=== PATIENT | female | born 1945 | race Caucasian/White ===

== ENCOUNTER 2022-02-04 16:45 | Outpatient (CLI) | payer MEDICARE, OTHER, SELFPAY | END 2022-02-04 16:46 | disposition home or self-care (01) | LOC: AMB 02-13 16:47 | PROVIDERS: Visit Provider Family Medicine | DX: M25.551 Pain in right hip (principal) | CPT/HCPCS: A0425; A0429 ==

== ENCOUNTER 2022-02-04 17:14 | Emergency (ER) | payer MEDICARE, OTHER, SELFPAY ==
[2022-02-04] VITALS (8 sets, daily range): BP systolic 102–137; BP diastolic 72–96; PULSE 113–128; RESP 14–18; TEMP 35.9–36.1; O2SAT 93–97; BMI 24.5
--- NOTE | 2022-02-04 17:37 | ED.GENADULT ---
HPI - General Adult General Time Seen by Provider: 17:37 <Mary Leigh MD - Last Filed: 02/04/22 19:38> Date Seen: 02/04/22 <Mary Leigh MD - Last Filed: 02/04/22 19:38> Chief complaint: Hip Injury/Pain <Mary Leigh MD - Last Filed: 02/04/22 19:38> Stated complaint: Hip pain <Mary Leigh MD - Last Filed: 02/04/22 19:38> Time Seen by Provider: 02/04/22 17:24 <Mary Leigh MD - Last Filed: 02/04/22 19:38> Source: patient, EMS and RN notes reviewed <Mary Leigh MD - Last Filed: 02/04/22 19:38> Mode of arrival: EMS <Mary Leigh MD - Last Filed: 02/04/22 19:38> Limitations: no limitations <Mary Leigh MD - Last Filed: 02/04/22 19:38> History of Present Illness HPI narrative: Patient is a 76-year-old female from the [facility] brought in by ambulance for inability to ambulate on her right hip. She was walking on on even ground Tuesday and since then she has had right hip pain. It goes into the groin. She does feel it go down to mid thigh or upper leg some. She feels it is more from the hip down the back. No numbness tingling. She can not even walk with her walker anymore because of the pain. She states it hurts when she moves her hip. She is on dialysis and is due for dialysis tomorrow. She dialyzes at [facility] in [place] on Tuesday and Tuesday. On admission nursing staff noted her vitals to show tachycardia. She is denying any sense of tachycardia. She states frequently when she goes to dialysis her heart rate will be elevated. She is not feeling short of breath at this time. Denies any chest pain. Patient is unsure where she would be transferred to in case she would need any surgery. She has been at [facility] before. She does have pain pills that she takes, is unsure if she is due for 1 but would like something for pain management. In her medication reconciliation she does get dilaudid 1 mg twice a day. Current medications: atorvastatin 10 mg at bedtime Keppra 5 mg at bedtime new Mucus Relief tablet 600 mg extended release at bedtime dilaudid 1 mg b.i.d. Levothyroxine 100 mcg daily Pilocarpine 2% solution, 1 drop each eye b.i.d. Acetaminophen 1000 mg b.i.d. Amiodarone 100 mg daily Plavix 75 mg daily Voltaren 1% gel topically b.i.d. Ferrous sulfate 325 mg daily Fosrenal 500 mg, 3 tablets 3 times a day Lisinopril 40 mg daily Metoprolol tartrate 100 mg 4 times a week, receives Tuesday, , Tuesday and Tuesday Metoprolol tartrate 50 mg 3 times a week on Tuesday and Tuesday morning prior to dialysis MiraLax 17 g daily Renal cap 1 tablet daily Senna 2 tablets b.i.d. Metoprolol tartrate 100 mg every evening at 6:00 p.m. P.r.n. medications acetaminophen, albuterol, bacitracin, Epogen, hydralazine, Dilaudid, loperamide, nystatin, pilocarpine, senna, cough syrup, Zanaflex Advanced directives: Patient's paperwork does show her to be DNR DNI <Mary Leigh MD - Last Filed: 02/04/22 19:38> Related Data Allergies/adverse reactions: Allergies Allergy/AdvReac Type Severity Reaction Status Date / Time amlodipine Allergy Verified 02/04/22 17:24 benzethonium chloride Allergy Verified 02/04/22 17:24 clindamycin Allergy Verified 02/04/22 17:24 iron Allergy Verified 02/04/22 17:24 latex Allergy Verified 02/04/22 17:24 Penicillins Allergy Verified 02/04/22 17:24 propylene glycol Allergy Verified 02/04/22 17:24 Sulfa (Sulfonamide Allergy Verified 02/04/22 17:24 Antibiotics) <Mary Leigh MD - Last Filed: 02/04/22 19:38> Review of Systems Status of ROS: Reports: 10 or more systems reviewed and unremarkable except as noted in History and below <Mary Leigh MD - Last Filed: 02/04/22 19:38> [facility] Social History: Social History Smoking Status: Never smoker Do you use any of these nicotine containing products: None Second hand tobacco smoke exposure: No How often do you have a drink containing alcohol: never How often do you have six or more drinks on one occasion: Never AUDIT-C Alcohol total score: 0 Non-prescribed substance use: denies use <Mary Leigh MD - Last Filed: 02/04/22 19:38> Exam Const: Vital Signs, click to edit/add: Vital Signs - 24 hr 02/04/22 17:24 02/04/22 17:30 02/04/22 18:30 Temperature 97 F L 97 F L Pulse Rate [Apical ] 128 H 127 H 123 H Respiratory Rate 18 16 Blood Pressure [Ri ght Upper Arm] 134/95 H 128/96 H 137/95 H Pulse Oximetry 97 94 94 Oxygen Delivery Me thod Room Air Room Air Room Air 02/04/22 19:30 Temperature 96.7 F L Pulse Rate [Apical ] 124 H Respiratory Rate 14 Blood Pressure [Ri ght Upper Arm] 116/84 Pulse Oximetry 97 Oxygen Delivery Me thod Room Air <Mary Leigh MD - Last Filed: 02/04/22 19:38> Vital Signs, click to edit/add: Vital Signs - 24 hr 02/04/22 17:24 02/04/22 17:30 02/04/22 18:30 Temperature 97 F L 97 F L Pulse Rate [Apical ] 128 H 127 H 123 H Respiratory Rate 18 16 Blood Pressure [Ri ght Upper Arm] 134/95 H 128/96 H 137/95 H Pulse Oximetry 97 94 94 Oxygen Delivery Me thod Room Air Room Air Room Air 02/04/22 19:30 Temperature 96.7 F L Pulse Rate [Apical ] 124 H Respiratory Rate 14 Blood Pressure [Ri ght Upper Arm] 116/84 Pulse Oximetry 97 Oxygen Delivery Me thod Room Air <Chaitanya Littlejohn MD - Last Filed: 02/04/22 20:44> Documenting provider has reviewed patient's vital signs: yes <Mary Leigh MD - Last Filed: 02/04/22 19:38> Common normals: no apparent distress, average body habitus, oriented x3, no limitations and alert <Mary Leigh MD - Last Filed: 02/04/22 19:38> General appearance: cooperative, comfortable and well kempt <Mary Leigh MD - Last Filed: 02/04/22 19:38> HENMT: Common normals: normocephalic, head/scalp atraumatic, hearing grossly normal bilaterally and external ears normal <Mary Leigh MD - Last Filed: 02/04/22 19:38> Head and scalp: normocephalic and atraumatic <Mary Leigh MD - Last Filed: 02/04/22 19:38> External ear: external ears normal <Mary Leigh MD - Last Filed: 02/04/22 19:38> Eye: Common normals: PERRL, EOMs intact bilaterally, conjunctivae normal and no scleral icterus <Mary Leigh MD - Last Filed: 02/04/22 19:38> Conjunctiva: conjunctiva(e) normal <Mary Leigh MD - Last Filed: 02/04/22 19:38> Pupil: PERRL <Mary Leigh MD - Last Filed: 02/04/22 19:38> Neck & C-Spine: Common normals: full ROM, no lymphadenopathy, supple, no meningeal signs and thyroid normal <Mary Leigh MD - Last Filed: 02/04/22 19:38> Thyroid: thyroid normal <Mary Leigh MD - Last Filed: 02/04/22 19:38> Resp: Common normals: normal respiratory effort (Had difficulty due to right hip pain sitting up, rolled side to side for me), no retractions, no use of accessory muscles and clear to auscultation bilaterally <Mary Leigh MD - Last Filed: 02/04/22 19:38> Effort & inspection: able to speak in complete sentences <Mary Leigh MD - Last Filed: 02/04/22 19:38> Auscultation: clear to auscultation bilaterally <Mary Leigh MD - Last Filed: 02/04/22 19:38> Cardio: Common normals: regular rate, regular rhythm, S1 normal heart sound, S2 normal heart sound, no gallops, no clicks and no murmurs <Mary Leigh MD - Last Filed: 02/04/22 19:38> Rate: regular rate <Mary Leigh MD - Last Filed: 02/04/22 19:38> Rhythm: regular rhythm <Mary Leigh MD - Last Filed: 02/04/22 19:38> Heart sounds: S1 normal and S2 normal <Mary Leigh MD - Last Filed: 02/04/22 19:38> GI: Common normals: Normal to inspection, nondistended, normoactive bowel sounds present, soft to palpation, non-tender, no hepatosplenomegaly and no masses <Mary Leigh MD - Last Filed: 02/04/22 19:38> Palpation: soft and no hepatosplenomegaly <Mary Leigh MD - Last Filed: 02/04/22 19:38> Extremity: Common normals: normal to inspection <Mary Leigh MD - Last Filed: 02/04/22 19:38> Right lower extremity: hip joint (Complains of pain when I internally or externally rotate the hip. ) Right hip: palpation (Greater trochanter nontender) and ROM <Mary Leigh MD - Last Filed: 02/04/22 19:38> Neuro: Common normals: oriented x3 <Mary Leigh MD - Last Filed: 02/04/22 19:38> Sensorium/orientation: alert <Mary Leigh MD - Last Filed: 02/04/22 19:38> Meningeal signs: no meningeal signs <Mary Leigh MD - Last Filed: 02/04/22 19:38> Psych: Appearance: well kempt <Mary Leigh MD - Last Filed: 02/04/22 19:38> Course Course Hospital Course: Will have patient on cardiac monitoring and pulse oximetry. Do not have any recent records on her to establish heart rate baseline. She is seemingly asymptomatic at this time. Will do appropriate labs, obtain imaging of her hip and pelvis. While she is having this imaging done I will get a chest x-ray to ensure no significant fluid overload. Clinically her lungs sound clear. <Mary Leigh MD - Last Filed: 02/04/22 19:38> Reevaluation(s) Reevaluation #1: Did look in her old records and did find an MRI of her lumbar spine done for low back pain in October of 2021. See below. Pulse documentation over the last year that I can see is is showing her pulse to be upper 50s, like 58, to low 60s. MR NUMBER: [id number] PT NAME:? SHASTA LARA : 1945 :? Lorena Deinse RN ACCOUNT NUMBER:? [id number] DATE: 11/04/21? [id number] MRI/LUMBAR SPINE W/O CONTRAST? For Patients:? As a result of the 21st Century Cures Act, medical imaging exams and procedure reports are released immediately into your electronic medical record.? You may view this report before your referring provider.? If you have questions, please contact your health care provider. INDICATION: Low back pain. COMPARISON: 10/24/2021. TECHNIQUE: Sagittal T1, T2, and STIR sequences. Axial T1 and T2 weighted sequences. FINDINGS: Stable trace degenerative anterolisthesis of L4 on L5 measuring approximately 4 mm. Otherwise, normal alignment. No fractures. No vertebral body loss of height. No ligamentous injury. No suspicious osseous lesions. Normal conus terminates at L1. Polycystic kidneys. T12-L1: No spinal canal neural foraminal narrowing. L1-2: Disc degeneration posterior disc bulge. No narrowing of spinal canal. No neural foraminal narrowing. L2-3: Disc degeneration and posterior disc bulge. Mild narrowing of spinal canal. No neural foraminal narrowing. Mild facet arthropathy. L3-4: Disc degeneration and posterior disc bulge. Combined facet arthropathy, there is moderate narrowing of spinal canal. Mild narrowing of the bilateral foramina. Mild facet arthropathy. L4-5: Grade 1 anterolisthesis. Disc degeneration and posterior disc bulge. Combined with ligament flavum and facet hypertrophy, there is severe spinal canal narrowing. There is an additional sequestered disc fragment along the right paracentral subarticular zone measuring approximately 10 mm in diameter with 10 mm of cephalad migration (best appreciated on series 7, image 26; series 2, image 7). Impingement of the traversing right L4 nerve root. Oblique orientation of the bilateral foramina with moderate severe right and [id number] left neural foraminal narrowing. Impingement of the exiting right L4 nerve root. Mild facet arthropathy. L5-S1: Disc degeneration. No narrowing of spinal canal. No impingement of the traversing S1 nerve roots. Mild narrowing of the bilateral foramina. Normal visualized SI joints. IMPRESSION: 1. Degenerative anterolisthesis of L4 on L5. Otherwise normal alignment. No fractures 2. Polycystic kidneys. 3. At L2-3, mild narrowing of spinal canal 4. At L3-4, moderate narrowing of spinal canal. Mild narrowing of the bilateral foramina 5. At L4-5, grade 1 anterolisthesis. Posterior disc bulge. Severe spinal canal narrowing. Additional sequestered disc fragment along the right paracentral and subarticular zones with cephalad migration. Impingement of the traversing right L4 nerve root. Moderate severe narrowing of the right neural foramina with impingement of the exiting portion of the right L4 6. At L5-S1, mild narrowing of the bilateral foramina Dictated by Herman Del Castillo MD @ 11/04/2021 1:32:13 PM (Electronically Signed) <Mary Leigh MD - Last Filed: 02/04/22 19:38> Vital Signs Vital signs: Initial Vital Signs Temperature 97 F L 02/04/22 17:24 Temperature Source Temporal Artery Scan 02/04/22 17:24 Pulse Rate 128 H 02/04/22 17:24 Pulse Rhythm 02/04/22 17:24 Respiratory Rate 18 02/04/22 17:24 Blood Pressure 134/95 H 02/04/22 17:24 Blood Pressure Mean 108 02/04/22 17:24 Blood Pressure Position Supine 02/04/22 17:24 Pulse Oximetry 97 02/04/22 17:24 Oxygen Delivery Method 02/04/22 17:24 Vital Signs Temperature 97 F L 02/04/22 17:24 Pulse Rate 128 H 02/04/22 17:24 Respiratory Rate 18 02/04/22 17:24 Blood Pressure 134/95 H 02/04/22 17:24 Pulse Oximetry 97 02/04/22 17:24 Oxygen Delivery Method 02/04/22 17:24 Temperature 96.7 F L 02/04/22 19:30 Pulse Rate 124 H 02/04/22 19:30 Respiratory Rate 14 02/04/22 19:30 Blood Pressure 116/84 02/04/22 19:30 Pulse Oximetry 97 02/04/22 19:30 Oxygen Delivery Method 02/04/22 19:30 <Mary Leigh MD - Last Filed: 02/04/22 19:38> Initial Vital Signs Temperature 97 F L 02/04/22 17:24 Temperature Source Temporal Artery Scan 02/04/22 17:24 Pulse Rate 128 H 02/04/22 17:24 Pulse Rhythm 02/04/22 17:24 Respiratory Rate 18 02/04/22 17:24 Blood Pressure 134/95 H 02/04/22 17:24 Blood Pressure Mean 108 02/04/22 17:24 Blood Pressure Position Supine 02/04/22 17:24 Pulse Oximetry 97 02/04/22 17:24 Oxygen Delivery Method 02/04/22 17:24 Vital Signs Temperature 97 F L 02/04/22 17:24 Pulse Rate 128 H 02/04/22 17:24 Respiratory Rate 18 02/04/22 17:24 Blood Pressure 134/95 H 02/04/22 17:24 Pulse Oximetry 97 02/04/22 17:24 Oxygen Delivery Method 02/04/22 17:24 Temperature 96.7 F L 02/04/22 19:30 Pulse Rate 124 H 02/04/22 19:30 Respiratory Rate 14 02/04/22 19:30 Blood Pressure 116/84 02/04/22 19:30 Pulse Oximetry 97 02/04/22 19:30 Oxygen Delivery Method 02/04/22 19:30 <Chaitanya Littlejohn MD - Last Filed: 02/04/22 20:44> Medical Decision Making MDM Narrative Medical decision making narrative: Care for this patient was transferred to id at the end of Dr. Gonsalez's shift. This patient is unable to get up and ambulate because of severe hip and pelvic pain when doing so. Additionally she has increased heart rate in the 120s. She is a dialysis patient and is due for dialysis tomorrow. Attempt was made to transfer her by calling all typical transfer facilities that we utilize. None of these were available to accommodate her. I did then speak with the hospitalist restrictive preparation operator, Dr. Napoles who agrees to bring her in overnight and will likely half to arrange for a trip to outpatient dialysis tomorrow. The patient may benefit also from an MRI for further evaluation of the cause of her pain. As for her heart rate, she did receive an oral dose of metoprolol 100 mg. <Chaitanya Littlejohn MD - Last Filed: 02/04/22 20:44> Lab Data Labs: Lab Results 02/04/22 02/04/22 02/04/22 Range/Units 17:58 18:25 18:25 WBC 5.61 (4.50-11.00) K/uL RBC 3.60 L (4.00-5.20) m/uL Hgb 12.3 (12.0-16.0) gm/dL Hct 36.3 (33.0-51.0) % MCV 101 H (80-100) fL MCH 34 (26-34) pg MCHC 34 (32-36) gm/dL RDW Coeff of Fabienne 12.7 (11.5-15.5) % Plt Count 254 (140-440) K/uL Neut % (Auto) 67.9 (42.0-72.0) % Lymph % (Auto) 13.4 L (20-44) % [place] % (Auto) 15.5 H (0.0-11.0) % Eos % (Auto) 2.3 (0.0-7.0) % Baso % (Auto) 0.7 (0.0-3.0) % Neut # (Auto) 3.81 (1.7-7.0) K/uL Lymph # (Auto) 0.80 L (0.90-2.90) K/uL [place] # (Auto) 0.90 (0.00-0.90) K/UL Eos # (Auto) 0.13 (0.00-0.50) K/uL Baso # (Auto) 0.04 (0.00-0.30) K/uL Abs Immat Gran (auto) 0.01 (0.00-0.30) K/uL Sodium 131 L (135-149) mmol/L Potassium 4.9 (3.6-5.1) mmol/L Chloride 89 L (96-114) mmol/L Carbon Dioxide 27 (20-32) mmol/L BUN 33 H (7-30) mg/dL Creatinine 6.0 H (0.5-1.5) mg/dL Estimated Creat Clear 6.41 Estimated GFR 7 ml/min Glucose 105 (60-115) mg/dL Calcium 10.2 (8.4-10.6) mg/dL Total Bilirubin 0.7 (0.1-1.5) mg/dL AST 25 (12-35) U/L ALT 16 (4-35) U/L Alkaline Phosphatase 123 (40-150) U/L Troponin I < 0.01 L (0.01-0.04) ng/mL NT-Pro-B Natriuret Pep 43753 H (0-450) PG/mL Total Protein 7.2 (6.0-8.3) g/dL Albumin 4.7 (3.3-5.0) g/dL TSH (0.270-4.200) uIU/mL SARS-CoV-2 (PCR) Negative SARS-CoV-2 (Negative) 02/04/22 Range/Units 18:25 WBC (4.50-11.00) K/uL RBC (4.00-5.20) m/uL Hgb (12.0-16.0) gm/dL Hct (33.0-51.0) % MCV (80-100) fL MCH (26-34) pg MCHC (32-36) gm/dL RDW Coeff of Fabienne (11.5-15.5) % Plt Count (140-440) K/uL Neut % (Auto) (42.0-72.0) % Lymph % (Auto) (20-44) % [place] % (Auto) (0.0-11.0) % Eos % (Auto) (0.0-7.0) % Baso % (Auto) (0.0-3.0) % Neut # (Auto) (1.7-7.0) K/uL Lymph # (Auto) (0.90-2.90) K/uL [place] # (Auto) (0.00-0.90) K/UL Eos # (Auto) (0.00-0.50) K/uL Baso # (Auto) (0.00-0.30) K/uL Abs Immat Gran (auto) (0.00-0.30) K/uL Sodium (135-149) mmol/L Potassium (3.6-5.1) mmol/L Chloride (96-114) mmol/L Carbon Dioxide (20-32) mmol/L BUN (7-30) mg/dL Creatinine (0.5-1.5) mg/dL Estimated Creat Clear Estimated GFR ml/min Glucose (60-115) mg/dL Calcium (8.4-10.6) mg/dL Total Bilirubin (0.1-1.5) mg/dL AST (12-35) U/L ALT (4-35) U/L Alkaline Phosphatase (40-150) U/L Troponin I (0.01-0.04) ng/mL NT-Pro-B Natriuret Pep (0-450) PG/mL Total Protein (6.0-8.3) g/dL Albumin (3.3-5.0) g/dL TSH 0.340 (0.270-4.200) uIU/mL SARS-CoV-2 (PCR) (Negative) <Mary Leigh MD - Last Filed: 02/04/22 19:38> Lab Results 02/04/22 02/04/22 02/04/22 Range/Units 17:58 18:25 18:25 WBC 5.61 (4.50-11.00) K/uL RBC 3.60 L (4.00-5.20) m/uL Hgb 12.3 (12.0-16.0) gm/dL Hct 36.3 (33.0-51.0) % MCV 101 H (80-100) fL MCH 34 (26-34) pg MCHC 34 (32-36) gm/dL RDW Coeff of Fabienne 12.7 (11.5-15.5) % Plt Count 254 (140-440) K/uL Neut % (Auto) 67.9 (42.0-72.0) % Lymph % (Auto) 13.4 L (20-44) % [place] % (Auto) 15.5 H (0.0-11.0) % Eos % (Auto) 2.3 (0.0-7.0) % Baso % (Auto) 0.7 (0.0-3.0) % Neut # (Auto) 3.81 (1.7-7.0) K/uL Lymph # (Auto) 0.80 L (0.90-2.90) K/uL [place] # (Auto) 0.90 (0.00-0.90) K/UL Eos # (Auto) 0.13 (0.00-0.50) K/uL Baso # (Auto) 0.04 (0.00-0.30) K/uL Abs Immat Gran (auto) 0.01 (0.00-0.30) K/uL Sodium 131 L (135-149) mmol/L Potassium 4.9 (3.6-5.1) mmol/L Chloride 89 L (96-114) mmol/L Carbon Dioxide 27 (20-32) mmol/L BUN 33 H (7-30) mg/dL Creatinine 6.0 H (0.5-1.5) mg/dL Estimated Creat Clear 6.41 Estimated GFR 7 ml/min Glucose 105 (60-115) mg/dL Calcium 10.2 (8.4-10.6) mg/dL Total Bilirubin 0.7 (0.1-1.5) mg/dL AST 25 (12-35) U/L ALT 16 (4-35) U/L Alkaline Phosphatase 123 (40-150) U/L Troponin I < 0.01 L (0.01-0.04) ng/mL NT-Pro-B Natriuret Pep 00241 H (0-450) PG/mL Total Protein 7.2 (6.0-8.3) g/dL Albumin 4.7 (3.3-5.0) g/dL TSH (0.270-4.200) uIU/mL SARS-CoV-2 (PCR) Negative SARS-CoV-2 (Negative) 02/04/22 Range/Units 18:25 WBC (4.50-11.00) K/uL RBC (4.00-5.20) m/uL Hgb (12.0-16.0) gm/dL Hct (33.0-51.0) % MCV (80-100) fL MCH (26-34) pg MCHC (32-36) gm/dL RDW Coeff of Fabienne (11.5-15.5) % Plt Count (140-440) K/uL Neut % (Auto) (42.0-72.0) % Lymph % (Auto) (20-44) % [place] % (Auto) (0.0-11.0) % Eos % (Auto) (0.0-7.0) % Baso % (Auto) (0.0-3.0) % Neut # (Auto) (1.7-7.0) K/uL Lymph # (Auto) (0.90-2.90) K/uL [place] # (Auto) (0.00-0.90) K/UL Eos # (Auto) (0.00-0.50) K/uL Baso # (Auto) (0.00-0.30) K/uL Abs Immat Gran (auto) (0.00-0.30) K/uL Sodium (135-149) mmol/L Potassium (3.6-5.1) mmol/L Chloride (96-114) mmol/L Carbon Dioxide (20-32) mmol/L BUN (7-30) mg/dL Creatinine (0.5-1.5) mg/dL Estimated Creat Clear Estimated GFR ml/min Glucose (60-115) mg/dL Calcium (8.4-10.6) mg/dL Total Bilirubin (0.1-1.5) mg/dL AST (12-35) U/L ALT (4-35) U/L Alkaline Phosphatase (40-150) U/L Troponin I (0.01-0.04) ng/mL NT-Pro-B Natriuret Pep (0-450) PG/mL Total Protein (6.0-8.3) g/dL Albumin (3.3-5.0) g/dL TSH 0.340 (0.270-4.200) uIU/mL SARS-CoV-2 (PCR) (Negative) <Chaitanya Littlejohn MD - Last Filed: 02/04/22 20:44> Imaging Data X-ray left hip/pelvis: Attestation: I have reviewed the pertinent imaging results. <Mary Leigh MD - Last Filed: 02/04/22 19:38> My impression: On my preliminary <Mary Leigh MD - Last Filed: 02/04/22 19:38> Radiologist's impression: Patient: SHASTA LARA Facility:?[facility] Patient ID:?[id number] Site Patient ID:?[id number]. Site :?1945 Study:?XRay Hip Right 2 VIEW WITH PELVIS-02/04/2022 6:13:09 PM Ordering Physician:Thuy Hernandez Final Report: Indication: Hip pain. Technique: Pelvis and right hip 3 views. Comparison: 10/09/2021. Findings: Bones: Alignment is normal. No fractures or bone lesions. Joint spaces: Stable moderate right hip joint arthritis. Unremarkable left hip joint. No other finding to explain pain. Soft tissues: Unremarkable. Dictated by Ant Gayle MD @ 02/04/2022 6:49:33 PM (Electronic Signature) <Mary Leigh MD - Last Filed: 02/04/22 19:38> Chest x-ray: Attestation: I have reviewed the pertinent imaging results. <Mary Leigh MD - Last Filed: 02/04/22 19:38> My impression: On my preliminary read, I do see some pulmonary vascular congestion, some fluid on fissure on the right side. Does look to be cardiomegaly. Await Radiology over-read. <Mary Leigh MD - Last Filed: 02/04/22 19:38> Radiologist's impression: Patient: SHASTA LARA Facility:?[facility] Patient ID:?[id number] Site Patient ID:?[id number]. Site :?1945 Study:?XRay Chest 1 VIEW-02/04/2022 6:13:54 PM Ordering Physician:Thuy Hernandez Final Report: INDICATION: Tachycardia, dialysis patient.. TECHNIQUE: Chest 1 views. COMPARISON: None. FINDINGS/IMPRESSION: Cardiovascular and mediastinum: Borderline cardiomegaly. Lungs and pleural spaces: Subtle bilateral interstitial opacities may reflect pulmonary edema. No sign of pleural effusion. No pneumothorax. Bones and soft tissues: No significant findings. A vascular stent in the left clavicular region. Dictated by Nelson Boss MD @ 02/04/2022 6:49:27 PM (Electronic Signature) <Mary Leigh MD - Last Filed: 02/04/22 19:38> ECG Data Attestation: I personally reviewed and interpreted this ECG as follows: (Tachycardia at 126 beats per minute, P waves difficult to see but I do think they are perhaps there.) <Mary Leigh MD - Last Filed: 02/04/22 19:38> Prior ECG tracings: not available for review <Mary Leigh MD - Last Filed: 02/04/22 19:38> Critical Care Time Critical Care Time Critical Care Time: No <Mary Leigh MD - Last Filed: 02/04/22 19:38> Discharge Plan Discharge Clinical Impression: Acute hip pain, Atrial tachycardia, End stage renal disease on dialysis <Mary Leigh MD - Last Filed: 02/04/22 19:38> Patient Disposition: Admitted As Inpatient <Mary Leigh MD - Last Filed: 02/04/22 19:38> Condition: Unchanged <Mary Leigh MD - Last Filed: 02/04/22 19:38>
--- NOTE | 2022-02-04 17:44 | CRLHL7_ITS ---
For Patients: As a result of the Cures Act, medical imaging exams and procedure reports are released immediately into your electronic medical record. You may view this report before your referring provider. If you have questions, please contact your health care provider. Indication: Hip pain. Technique: Pelvis and right hip 3 views. Comparison: 10/09/2021. Findings: Bones: Alignment is normal. No fractures or bone lesions. Joint spaces: Stable moderate right hip joint arthritis. Unremarkable left hip joint. No other finding to explain pain. Soft tissues: Unremarkable. Dictated by Ant Gayle MD @ 02/04/2022 6:49:33 PM (Electronically Signed)
--- NOTE | 2022-02-04 17:45 | CRLHL7_ITS ---
For Patients: As a result of the Cures Act, medical imaging exams and procedure reports are released immediately into your electronic medical record. You may view this report before your referring provider. If you have questions, please contact your health care provider. INDICATION: Tachycardia, dialysis patient.. TECHNIQUE: Chest 1 views. COMPARISON: None. FINDINGS/IMPRESSION: Cardiovascular and mediastinum: Borderline cardiomegaly. Lungs and pleural spaces: Subtle bilateral interstitial opacities may reflect pulmonary edema. No sign of pleural effusion. No pneumothorax. Bones and soft tissues: No significant findings. A vascular stent in the left clavicular region. Dictated by Nelson Boss MD @ 02/04/2022 6:49:27 PM (Electronically Signed)
[2022-02-04] MEDS: HYDROmorphone 2 MG TABLET 1 MG PO ×2 (18:15→19:31)
--- NOTE | 2022-02-04 18:54 | CRLHL7_ITS ---
For Patients: As a result of the Century Cures Act, medical imaging exams and procedure reports are released immediately into your electronic medical record. You may view this report before your referring provider. If you have questions, please contact your health care provider. INDICATION: Hip pain. Unable to walk. TECHNIQUE: CT pelvis without contrast. COMPARISON: None. FINDINGS: Bones: Alignment is normal. No sign of acute fracture. No suspicious bony lesions. Joints: Moderate right hip joint osteoarthritis with subchondral cyst formation in the acetabulum. Unremarkable left hip joint. Soft tissues: A tract of fluid is present in the right inguinal canal. IMPRESSION: No fracture or other acute osseous abnormality. Moderate right hip joint osteoarthritis. Fluid is present in the right inguinal canal. No other specific finding to explain pain. Please note that all CT scans at this facility use dose modulation, iterative reconstruction, and/or weight-based dosing when appropriate to reduce radiation dose to as low as reasonably achievable. Dictated by Ant Gayle MD @ 02/04/2022 7:50:19 PM (Electronically Signed)
[2022-02-04 18:57] LABS: Basophils Absolute Auto 0.04 K/uL (0.00-0.30); Basophils Percent Auto 0.7 % (0.0-3.0); Eosinophils Absolute Auto 0.13 K/uL (0.00-0.50); Eosinophils Percent Auto 2.3 % (0.0-7.0); Hematocrit 36.3 % (33.0-51.0); Hemoglobin* 12.3 gm/dL (12.0-16.0); Immature Granulocytes Abs Auto 0.01 K/uL (0.00-0.30); Lymphocytes Percent Auto 13.4 % (20-44); Mean Corpuscular HGB Conc 34 gm/dL (32-36); Mean Corpuscular Hemoglobin 34 pg (26-34); Mean Corpuscular Volume 101 fL (80-100); Monocytes Percent Auto 15.5 % (0.0-11.0); Neutrophils Absolute Auto 3.81 K/uL (1.7-7.0); Neutrophils Percent Auto 67.9 % (42.0-72.0); Platelet Count* 254 K/uL (140-440); RDW Coefficient of Variation % 12.7 % (11.5-15.5); White Blood Count* 5.61 K/uL (4.50-11.00)
[2022-02-04 18:59] LABS: Slide Review Reflex No
[2022-02-04 19:05] LABS: Albumin* 4.7 g/dL (3.3-5.0); Chloride* 89 mmol/L (96-114)
[2022-02-04 19:06] LABS: Potassium* 4.9 mmol/L (3.6-5.1); Sodium* 131 mmol/L (135-149)
[2022-02-04 19:08] LABS: Aspartate Amino Transferase* 25 U/L (12-35); Bilirubin Total* 0.7 mg/dL (0.1-1.5); Carbon Dioxide* 27 mmol/L (20-32); Est. Creatinine Clearance* 6.41; Estimated Glomerular Filt Rate 7 ml/min; Total Protein* 7.2 g/dL (6.0-8.3)
[2022-02-04 19:09] LABS: Alanine Aminotransferase* 16 U/L (4-35); Alkaline Phosphatase* 123 U/L (40-150); Blood Urea Nitrogen* 33 mg/dL (7-30); Calcium* 10.2 mg/dL (8.4-10.6); Glucose* 105 mg/dL (60-115)
[2022-02-04 19:18] LABS: NT Pro B Type NatriureticPept* 23000 PG/mL (0-450)
[2022-02-04 19:24] LABS: Troponin I* < 0.01 ng/mL (0.01-0.04)
--- NOTE | 2022-02-04 19:42 | ED.NURSE ---
Dr. Gonsalez in with patient. Awaiting Ct results. Patient remains tachycardic, reports she did not receive evening metoprolol tonight. Also reporting nausea after dilaudid. Plan for metoprolol and zofran order. Per patient, she lives in assisted living at [facility], would not have assistance for mobility if she were to need to be in wheelchair until specialty consult.
[2022-02-04 19:43] LABS: SARS PCR* Negative SARS-CoV-2 (Negative)
[2022-02-04] MEDS: ONDANSETRON 2 MG/ML inj 4 MG IVP (19:52)
[2022-02-04] MEDS: METOPROLOL TARTRATE 100 MG TABLET PO (19:53)
--- NOTE | 2022-02-04 21:07 | ED.EXTPRO ---
HPI - Extremity Problem General Chief complaint: Hip Injury/Pain Stated complaint: Hip pain Time Seen by Provider: 02/04/22 17:24 Source: patient and RN notes reviewed Mode of arrival: EMS Limitations: no limitations History of Present Illness HPI Narrative: I assumed care for patient at 9:00 p.m., following Dr. Souza shift. Dr. Peck had been told that the patient was to be accepted onto the med surge unit. Following his departure, the med surge team to clear that they could no longer take the patient as they had another patient transferring into the CCU, leaving without appropriate staff. Because of this, patient will remain in the emergency department until an appropriate dialysis bed opens up or her condition improves. I have ordered her home medications for evening. I specifically ordered 100 mg of short-acting metoprolol every evening, 1 mg of Dilaudid b.i.d., Keppra 500 mg at bedtime. I will be turning over care to Dr. Gil at midnight. Related Data Allergies Allergy/AdvReac Type Severity Reaction Status Date / Time amlodipine Allergy Verified 02/04/22 17:24 benzethonium chloride Allergy Verified 02/04/22 17:24 clindamycin Allergy Verified 02/04/22 17:24 iron Allergy Verified 02/04/22 17:24 latex Allergy Verified 02/04/22 17:24 Penicillins Allergy Verified 02/04/22 17:24 propylene glycol Allergy Verified 02/04/22 17:24 Sulfa (Sulfonamide Allergy Verified 02/04/22 17:24 Antibiotics) PFSH PFS Social History Smoking Status: Never smoker Do you use any of these nicotine containing products: None Second hand tobacco smoke exposure: No How often do you have a drink containing alcohol: never How often do you have six or more drinks on one occasion: Never AUDIT-C Alcohol total score: 0 Non-prescribed substance use: denies use Exam Const: Vital Signs, click to edit/add: Vital Signs - 24 hr 02/04/22 17:24 02/04/22 17:30 02/04/22 18:30 Temperature 97 F L 97 F L Pulse Rate [Apical ] 128 H 127 H 123 H Respiratory Rate 18 16 Blood Pressure [Ri ght Upper Arm] 134/95 H 128/96 H 137/95 H Pulse Oximetry 97 94 94 Oxygen Delivery Me thod Room Air Room Air Room Air 02/04/22 19:30 Temperature 96.7 F L Pulse Rate [Apical ] 124 H Respiratory Rate 14 Blood Pressure [Ri ght Upper Arm] 116/84 Pulse Oximetry 97 Oxygen Delivery Me thod Room Air Course Course Hospital Course: Will have patient on cardiac monitoring and pulse oximetry. Do not have any recent records on her to establish heart rate baseline. She is seemingly asymptomatic at this time. Will do appropriate labs, obtain imaging of her hip and pelvis. While she is having this imaging done I will get a chest x-ray to ensure no significant fluid overload. Clinically her lungs sound clear. Vital Signs Vital signs: Initial Vital Signs Temperature 97 F L 02/04/22 17:24 Temperature Source Temporal Artery Scan 02/04/22 17:24 Pulse Rate 128 H 02/04/22 17:24 Pulse Rhythm 02/04/22 17:24 Respiratory Rate 18 02/04/22 17:24 Blood Pressure 134/95 H 02/04/22 17:24 Blood Pressure Mean 108 02/04/22 17:24 Blood Pressure Position Supine 02/04/22 17:24 Pulse Oximetry 97 02/04/22 17:24 Oxygen Delivery Method 02/04/22 17:24 Vital Signs Temperature 97 F L 02/04/22 17:24 Pulse Rate 128 H 02/04/22 17:24 Respiratory Rate 18 02/04/22 17:24 Blood Pressure 134/95 H 02/04/22 17:24 Pulse Oximetry 97 02/04/22 17:24 Oxygen Delivery Method 02/04/22 17:24 Temperature 96.7 F L 02/04/22 19:30 Pulse Rate 124 H 02/04/22 19:30 Respiratory Rate 14 02/04/22 19:30 Blood Pressure 116/84 02/04/22 19:30 Pulse Oximetry 97 02/04/22 19:30 Oxygen Delivery Method 02/04/22 19:30 MDM - Extremity (Nontraumatic) Lab Data Labs: Lab Results 02/04/22 02/04/22 02/04/22 Range/Units 17:58 18:25 18:25 WBC 5.61 (4.50-11.00) K/uL RBC 3.60 L (4.00-5.20) m/uL Hgb 12.3 (12.0-16.0) gm/dL Hct 36.3 (33.0-51.0) % MCV 101 H (80-100) fL MCH 34 (26-34) pg MCHC 34 (32-36) gm/dL RDW Coeff of Fabienne 12.7 (11.5-15.5) % Plt Count 254 (140-440) K/uL Neut % (Auto) 67.9 (42.0-72.0) % Lymph % (Auto) 13.4 L (20-44) % [place] % (Auto) 15.5 H (0.0-11.0) % Eos % (Auto) 2.3 (0.0-7.0) % Baso % (Auto) 0.7 (0.0-3.0) % Neut # (Auto) 3.81 (1.7-7.0) K/uL Lymph # (Auto) 0.80 L (0.90-2.90) K/uL [place] # (Auto) 0.90 (0.00-0.90) K/UL Eos # (Auto) 0.13 (0.00-0.50) K/uL Baso # (Auto) 0.04 (0.00-0.30) K/uL Abs Immat Gran (auto) 0.01 (0.00-0.30) K/uL Sodium 131 L (135-149) mmol/L Potassium 4.9 (3.6-5.1) mmol/L Chloride 89 L (96-114) mmol/L Carbon Dioxide 27 (20-32) mmol/L BUN 33 H (7-30) mg/dL Creatinine 6.0 H (0.5-1.5) mg/dL Estimated Creat Clear 6.41 Estimated GFR 7 ml/min Glucose 105 (60-115) mg/dL Calcium 10.2 (8.4-10.6) mg/dL Total Bilirubin 0.7 (0.1-1.5) mg/dL AST 25 (12-35) U/L ALT 16 (4-35) U/L Alkaline Phosphatase 123 (40-150) U/L Troponin I < 0.01 L (0.01-0.04) ng/mL NT-Pro-B Natriuret Pep 20348 H (0-450) PG/mL Total Protein 7.2 (6.0-8.3) g/dL Albumin 4.7 (3.3-5.0) g/dL TSH (0.270-4.200) uIU/mL SARS-CoV-2 (PCR) Negative SARS-CoV-2 (Negative) 02/04/22 Range/Units 18:25 WBC (4.50-11.00) K/uL RBC (4.00-5.20) m/uL Hgb (12.0-16.0) gm/dL Hct (33.0-51.0) % MCV (80-100) fL MCH (26-34) pg MCHC (32-36) gm/dL RDW Coeff of Fabienne (11.5-15.5) % Plt Count (140-440) K/uL Neut % (Auto) (42.0-72.0) % Lymph % (Auto) (20-44) % [place] % (Auto) (0.0-11.0) % Eos % (Auto) (0.0-7.0) % Baso % (Auto) (0.0-3.0) % Neut # (Auto) (1.7-7.0) K/uL Lymph # (Auto) (0.90-2.90) K/uL [place] # (Auto) (0.00-0.90) K/UL Eos # (Auto) (0.00-0.50) K/uL Baso # (Auto) (0.00-0.30) K/uL Abs Immat Gran (auto) (0.00-0.30) K/uL Sodium (135-149) mmol/L Potassium (3.6-5.1) mmol/L Chloride (96-114) mmol/L Carbon Dioxide (20-32) mmol/L BUN (7-30) mg/dL Creatinine (0.5-1.5) mg/dL Estimated Creat Clear Estimated GFR ml/min Glucose (60-115) mg/dL Calcium (8.4-10.6) mg/dL Total Bilirubin (0.1-1.5) mg/dL AST (12-35) U/L ALT (4-35) U/L Alkaline Phosphatase (40-150) U/L Troponin I (0.01-0.04) ng/mL NT-Pro-B Natriuret Pep (0-450) PG/mL Total Protein (6.0-8.3) g/dL Albumin (3.3-5.0) g/dL TSH 0.340 (0.270-4.200) uIU/mL SARS-CoV-2 (PCR) (Negative) Discharge Plan Discharge Clinical Impression: Acute hip pain, Atrial tachycardia, End stage renal disease on dialysis Patient Disposition: Admitted As Inpatient Condition: Unchanged
[2022-02-04] MEDS: levETIRAcetam 500 MG TABLET PO (21:50)
--- NOTE | 2022-02-04 22:12 | ED.NURSE ---
no beds available for transfer, pt moved to hospital bed, does have pain to R leg, cms intact, second call to [facility] for meds admin today, they will call back
--- NOTE | 2022-02-04 22:45 | ED.NURSE ---
call back from [facility]avo [phone]. pt did have 100mg metoprolol this am, and has already had 100mg metoprolol in ER, will hold ordered dose, dr borjas updated. pt usually has 1mg dilaudid in the evening at [facility], has also already had in ER. Pt states pain is tolerable at rest, does grimmage with movement. Dr. Borjas updated that Pt states R foot feels heavy, cms remains intact.
--- NOTE | 2022-02-04 23:22 | ED.GENADULT ---
HPI - General Adult General Date Seen: 02/04/22 Chief complaint: Hip Injury/Pain Stated complaint: Hip pain Time Seen by Provider: 02/04/22 17:24 Source: patient, RN notes reviewed and old records reviewed Mode of arrival: EMS Limitations: no limitations History of Present Illness HPI narrative: Patient accepted in sign-out from Dr. Bennett. Please see prior notes for complete history and physical as well as ED course so far. Briefly, this is a dialysis dependent patient with history of SVT who presents today atraumatic hip pain. Labs demonstrate normal white blood cell count and normal hemoglobin, CT scan of the pelvis with fluid present in the right inguinal canal but no other acute findings. Patient is due for dialysis tomorrow. However, also persistently tachycardic in the emergency department with no definite explanation. Patient says that she has had tachycardia before but review of chart shows that heart rate is normally in the 50s to 60s when she has been seen previously. Related Data Allergies Allergy/AdvReac Type Severity Reaction Status Date / Time acetic acid Allergy Severe Hives Verified 02/09/22 11:32 benzalkonium chloride Allergy Severe Hives Verified 02/09/22 11:32 hydrocortisone Allergy Severe Hives Verified 02/09/22 11:32 amlodipine Allergy Verified 02/04/22 17:24 benzethonium chloride Allergy Verified 02/04/22 17:24 clindamycin Allergy Verified 02/04/22 17:24 iron Allergy Verified 02/04/22 17:24 latex Allergy Verified 02/04/22 17:24 Penicillins Allergy Verified 02/04/22 17:24 propylene glycol Allergy Verified 02/04/22 17:24 Sulfa (Sulfonamide Allergy Verified 02/04/22 17:24 Antibiotics) Penicillin Allergy Severe Throat Uncoded 02/09/22 11:32 closure, hives Sulfa Antibiotics Allergy Unknown Throat Uncoded 02/09/22 11:32 closure, hives IV iron AdvReac Severe Hospital Uncoded 02/09/22 11:32 admission due to trouble breathing [facility] Medical History (Updated 02/09/22 @ 11:33 by Dee Montero) History of fracture of pelvis Mumps Surgical History (Updated 02/09/22 @ 11:33 by Dee Montero) Status post total abdominal hysterectomy and bilateral salpingo-oophorectomy Social History Smoking Status: Never smoker Do you use any of these nicotine containing products: None Second hand tobacco smoke exposure: No How often do you have a drink containing alcohol: never How often do you have six or more drinks on one occasion: Never AUDIT-C Alcohol total score: 0 Non-prescribed substance use: denies use Exam Const: Vital Signs, click to edit/add: Vital Signs - 24 hr 02/04/22 17:24 02/04/22 17:30 02/04/22 18:30 Temperature 97 F L 97 F L Pulse Rate [Apical ] 128 H 127 H 123 H Respiratory Rate 18 16 Blood Pressure [Ri ght Upper Arm] 134/95 H 128/96 H 137/95 H Pulse Oximetry 97 94 94 Oxygen Delivery Me thod Room Air Room Air Room Air 02/04/22 19:30 02/04/22 21:30 02/04/22 22:00 Temperature 96.7 F L Pulse Rate [Apical ] 124 H 116 H 115 H Respiratory Rate 14 14 14 Blood Pressure [Ri ght Upper Arm] 116/84 103/73 125/88 Pulse Oximetry 97 93 Oxygen Delivery Me thod Room Air Room Air Room Air 02/04/22 22:30 02/04/22 23:00 Temperature 96.7 F L Pulse Rate [Apical ] 114 H 113 H Respiratory Rate 14 14 Blood Pressure [Ri ght Upper Arm] 103/73 102/72 Pulse Oximetry 94 93 Oxygen Delivery Me thod Room Air Room Air Course Course Hospital Course: Will have patient on cardiac monitoring and pulse oximetry. Do not have any recent records on her to establish heart rate baseline. She is seemingly asymptomatic at this time. Will do appropriate labs, obtain imaging of her hip and pelvis. While she is having this imaging done I will get a chest x-ray to ensure no significant fluid overload. Clinically her lungs sound clear. Reevaluation(s) Reevaluation #1: Sign-out accepted from Dr. Bennett. Reviewed workup so far including labs and CT. Patient recheck. She really has no tenderness of the hip on exam but does have pain with active motion, mild pain with passive movement as well. No redness or exquisite tenderness of hip to suggest septic arthritis or crystal arthropathy. Labs including blood cultures and lactate are ordered. CRP of minimal use in this chronically ill patient. Will recheck CBC as well to see if there have been any changes during patient's emergency psych course. Due to ongoing tachycardia of unknown etiology, CT scan chest, abdomen, pelvis with contrast will be done. Patient will be dialyzed in the morning Time: 23:20 Reevaluation #2: I personally reviewed CT images, no definite acute findings in the chest, abdomen, or pelvis. On return back from Radiology, patient has converted out of her rapid heart rate to 50s to 60s. Decadron ordered for possible exacerbation of known osteoarthritis. Time: 00:25 Vital Signs Vital signs: Initial Vital Signs Temperature 97 F L 02/04/22 17:24 Temperature Source Temporal Artery Scan 02/04/22 17:24 Pulse Rate 128 H 02/04/22 17:24 Pulse Rhythm 02/04/22 17:24 Respiratory Rate 18 02/04/22 17:24 Blood Pressure 134/95 H 02/04/22 17:24 Blood Pressure Mean 108 02/04/22 17:24 Blood Pressure Position Supine 02/04/22 17:24 Pulse Oximetry 97 02/04/22 17:24 Oxygen Delivery Method 02/04/22 17:24 Vital Signs Temperature 97 F L 02/04/22 17:24 Pulse Rate 128 H 02/04/22 17:24 Respiratory Rate 18 02/04/22 17:24 Blood Pressure 134/95 H 02/04/22 17:24 Pulse Oximetry 97 02/04/22 17:24 Oxygen Delivery Method 02/04/22 17:24 Temperature 96.7 F L 02/04/22 22:30 Pulse Rate 62 02/05/22 08:38 Respiratory Rate 18 02/05/22 08:38 Blood Pressure 138/75 02/05/22 08:38 Pulse Oximetry 96 02/05/22 08:38 Oxygen Delivery Method 02/05/22 08:38 Medical Decision Making Lab Data Labs: Lab Results 02/04/22 02/04/22 02/04/22 Range/Units 17:58 18:25 18:25 WBC 5.61 (4.50-11.00) K/uL RBC 3.60 L (4.00-5.20) m/uL Hgb 12.3 (12.0-16.0) gm/dL Hct 36.3 (33.0-51.0) % MCV 101 H (80-100) fL MCH 34 (26-34) pg MCHC 34 (32-36) gm/dL RDW Coeff of Fabienne 12.7 (11.5-15.5) % Plt Count 254 (140-440) K/uL Neut % (Auto) 67.9 (42.0-72.0) % Lymph % (Auto) 13.4 L (20-44) % [place] % (Auto) 15.5 H (0.0-11.0) % Eos % (Auto) 2.3 (0.0-7.0) % Baso % (Auto) 0.7 (0.0-3.0) % Neut # (Auto) 3.81 (1.7-7.0) K/uL Lymph # (Auto) 0.80 L (0.90-2.90) K/uL [place] # (Auto) 0.90 (0.00-0.90) K/UL Eos # (Auto) 0.13 (0.00-0.50) K/uL Baso # (Auto) 0.04 (0.00-0.30) K/uL Abs Immat Gran (auto) 0.01 (0.00-0.30) K/uL Sodium 131 L (135-149) mmol/L Potassium 4.9 (3.6-5.1) mmol/L Chloride 89 L (96-114) mmol/L Carbon Dioxide 27 (20-32) mmol/L BUN 33 H (7-30) mg/dL Creatinine 6.0 H (0.5-1.5) mg/dL Estimated Creat Clear 6.41 Estimated GFR 7 ml/min Glucose 105 (60-115) mg/dL Lactate (0.5-1.9) mmol/L Calcium 10.2 (8.4-10.6) mg/dL Total Bilirubin 0.7 (0.1-1.5) mg/dL AST 25 (12-35) U/L ALT 16 (4-35) U/L Alkaline Phosphatase 123 (40-150) U/L Troponin I < 0.01 L (0.01-0.04) ng/mL NT-Pro-B Natriuret Pep 25336 H (0-450) PG/mL Total Protein 7.2 (6.0-8.3) g/dL Albumin 4.7 (3.3-5.0) g/dL Lipase (23-300) U/L TSH (0.270-4.200) uIU/mL SARS-CoV-2 (PCR) Negative SARS-CoV-2 (Negative) 02/04/22 02/04/22 02/04/22 Range/Units 18:25 23:53 23:53 WBC 5.89 (4.50-11.00) K/uL RBC 3.38 L (4.00-5.20) m/uL Hgb 11.5 L (12.0-16.0) gm/dL Hct 34.5 (33.0-51.0) % MCV 102 H (80-100) fL MCH 34 (26-34) pg MCHC 33 (32-36) gm/dL RDW Coeff of Fabienne 12.7 (11.5-15.5) % Plt Count 228 (140-440) K/uL Neut % (Auto) 61.2 (42.0-72.0) % Lymph % (Auto) 17.8 L (20-44) % [place] % (Auto) 17.1 H (0.0-11.0) % Eos % (Auto) 2.7 (0.0-7.0) % Baso % (Auto) 1.0 (0.0-3.0) % Neut # (Auto) 3.60 (1.7-7.0) K/uL Lymph # (Auto) 1.00 (0.90-2.90) K/uL [place] # (Auto) 1.00 H (0.00-0.90) K/UL Eos # (Auto) 0.16 (0.00-0.50) K/uL Baso # (Auto) 0.06 (0.00-0.30) K/uL Abs Immat Gran (auto) 0.01 (0.00-0.30) K/uL Sodium (135-149) mmol/L Potassium (3.6-5.1) mmol/L Chloride (96-114) mmol/L Carbon Dioxide (20-32) mmol/L BUN (7-30) mg/dL Creatinine (0.5-1.5) mg/dL Estimated Creat Clear Estimated GFR ml/min Glucose (60-115) mg/dL Lactate 1.0 (0.5-1.9) mmol/L Calcium (8.4-10.6) mg/dL Total Bilirubin (0.1-1.5) mg/dL AST (12-35) U/L ALT (4-35) U/L Alkaline Phosphatase (40-150) U/L Troponin I (0.01-0.04) ng/mL NT-Pro-B Natriuret Pep (0-450) PG/mL Total Protein (6.0-8.3) g/dL Albumin (3.3-5.0) g/dL Lipase (23-300) U/L TSH 0.340 (0.270-4.200) uIU/mL SARS-CoV-2 (PCR) (Negative) 02/04/22 Range/Units 23:53 WBC (4.50-11.00) K/uL RBC (4.00-5.20) m/uL Hgb (12.0-16.0) gm/dL Hct (33.0-51.0) % MCV (80-100) fL MCH (26-34) pg MCHC (32-36) gm/dL RDW Coeff of Fabienne (11.5-15.5) % Plt Count (140-440) K/uL Neut % (Auto) (42.0-72.0) % Lymph % (Auto) (20-44) % [place] % (Auto) (0.0-11.0) % Eos % (Auto) (0.0-7.0) % Baso % (Auto) (0.0-3.0) % Neut # (Auto) (1.7-7.0) K/uL Lymph # (Auto) (0.90-2.90) K/uL [place] # (Auto) (0.00-0.90) K/UL Eos # (Auto) (0.00-0.50) K/uL Baso # (Auto) (0.00-0.30) K/uL Abs Immat Gran (auto) (0.00-0.30) K/uL Sodium (135-149) mmol/L Potassium (3.6-5.1) mmol/L Chloride (96-114) mmol/L Carbon Dioxide (20-32) mmol/L BUN (7-30) mg/dL Creatinine (0.5-1.5) mg/dL Estimated Creat Clear Estimated GFR ml/min Glucose (60-115) mg/dL Lactate (0.5-1.9) mmol/L Calcium (8.4-10.6) mg/dL Total Bilirubin (0.1-1.5) mg/dL AST (12-35) U/L ALT (4-35) U/L Alkaline Phosphatase (40-150) U/L Troponin I (0.01-0.04) ng/mL NT-Pro-B Natriuret Pep (0-450) PG/mL Total Protein (6.0-8.3) g/dL Albumin (3.3-5.0) g/dL Lipase 70 (23-300) U/L TSH (0.270-4.200) uIU/mL SARS-CoV-2 (PCR) (Negative) Imaging Data CT Chest/Ab/Pelvis: Attestation: I have reviewed the pertinent imaging results. ECG Data Attestation: I personally reviewed and interpreted this ECG as follows: Prior ECG tracings: available for review Interpretation: Performed at 12:25 a.m. for change in rhythm demonstrates sinus rhythm with first-degree AV block rate 62, no acute ST elevations or depressions, normal intervals, normal axis, QTC 424, AR 230. Compared to prior, sinus rhythm has replaced junctional tachycardia. Discharge Plan Discharge Clinical Impression: End stage renal disease on dialysis, Heart murmur, Paroxysmal junctional tachycardia Acute hip pain Qualifiers: Laterality: right Qualified Code(s): M25.551 - Pain in right hip Condition: Unchanged Additional Instructions: You will be discharged home today, you should attend dialysis as scheduled. Will make an appointment for you to see the orthopedic surgeon early next week-you may benefit from a joint injection into the right hip. Your pain is likely caused by advanced arthritis and the joint injection may help relieve some of your discomfort. Return to the ER if you develop fever, weakness, or vomiting. Follow up appointment is scheduled at the [facility] on 02/10 with a 10:20am arrival time. Please bring your insurance information and photo ID. [id number] [place] [address]
--- NOTE | 2022-02-04 23:37 | CRLHL7_ITS ---
For Patients: As a result of the Century Cures Act, medical imaging exams and procedure reports are released immediately into your electronic medical record. You may view this report before your referring provider. If you have questions, please contact your health care provider. INDICATION: Right abdominal tenderness, dyspnea TECHNIQUE: CT chest was performed with pulmonary angiographic technique. Subsequently, CT abdomen and pelvis with i.v. contrast during the venous phase. Coronal and sagittal reformats were obtained. CONTRAST: 75 mL Isovue 370 COMPARISON: 02/04/2022, 03/12/2021 FINDINGS: CHEST: Cardiovascular: The heart has an unremarkable appearance and size. Moderate, stable enlargement of the main pulmonary artery is present and measures 3.6 cm in maximal short axis. No CT identified pulmonary emboli are seen. The pulmonary arteries are unremarkable in appearance. No sign of aneurysm or dissection in the thoracic aorta. Mediastinum: No mass or adenopathy seen. Lung: Both lungs are unremarkable in appearance. Pleura and pericardium: No sign of pleural effusion seen. No significant pericardial effusion is present. Chest wall and axilla: No mass or adenopathy seen. Bone: Unremarkable for age. No acute osseous injuries seen. ABDOMEN/PELVIS: Liver: Mild periportal edema is noted. Spleen: Unremarkable. Pancreas: Unremarkable. Gallbladder: Unremarkable. Kidney: Bilateral renal enlargement is noted with innumerable cystic lesions present measuring up to 5.2 cm and likely due to autosomal dominant polycystic kidney disease. Adrenal: Unremarkable. Bowel: Unremarkable. Previous appendectomy noted with no significant appendiceal stump identified. Vascular: Unremarkable. Lymph: Unremarkable. Peritoneum: Unremarkable. No pneumoperitoneum is seen. No significant ascites is noted. Pelvis: The patient is status post hysterectomy. Soft tissue: Unremarkable. Bone: Unremarkable for age. No acute osseous injuries seen. IMPRESSIONS: 1. Moderate, stable enlargement of the main pulmonary artery is present and measures 3.6 cm in maximal short axis. This is likely due to pulmonary hypertension. 2. Bilateral renal enlargement is noted with innumerable cystic lesions present measuring up to 5.2 cm and likely due to autosomal dominant polycystic kidney disease. Dictated by Nasim Paulino MD @ 02/05/2022 12:40:51 AM Please note that all CT scans at this facility use dose modulation, iterative reconstruction, and/or weight-based dosing when appropriate to reduce radiation dose to as low as reasonably achievable. Dictated by: Nasim Paulino MD @ 02/05/2022 01:04:20 (Electronically Signed)
[2022-02-05] VITALS (8 sets, daily range): BP systolic 106–138; BP diastolic 58–75; PULSE 55–62; RESP 14–18; O2SAT 93–100
[2022-02-05 00:02] LABS: Basophils Absolute Auto 0.06 K/uL (0.00-0.30); Eosinophils Absolute Auto 0.16 K/uL (0.00-0.50); Eosinophils Percent Auto 2.7 % (0.0-7.0); Hematocrit 34.5 % (33.0-51.0); Hemoglobin* 11.5 gm/dL (12.0-16.0); Immature Granulocytes Abs Auto 0.01 K/uL (0.00-0.30); Lymphocytes Percent Auto 17.8 % (20-44); Mean Corpuscular HGB Conc 33 gm/dL (32-36); Mean Corpuscular Hemoglobin 34 pg (26-34); Mean Corpuscular Volume 102 fL (80-100); Monocytes Percent Auto 17.1 % (0.0-11.0); Neutrophils Percent Auto 61.2 % (42.0-72.0); Platelet Count* 228 K/uL (140-440); RDW Coefficient of Variation % 12.7 % (11.5-15.5); Red Blood Count 3.38 m/uL (4.00-5.20); White Blood Count* 5.89 K/uL (4.50-11.00)
[2022-02-05 00:03] LABS: Slide Review Reflex No
[2022-02-05 00:16] LABS: Lipase* 70 U/L (23-300)
[2022-02-05] MEDS: 0.9 % SODIUM CHLORIDE 250 ml 250 ML IV (00:24)
--- NOTE | 2022-02-05 00:25 | ED.NURSE ---
Pt back from imaging, HR was 110's, within minutes converted to 50's and 60's. ekg to dr zambrano
[2022-02-05] MEDS: dexAMETHasone 10 MG/ML inj IVP (00:34)
[2022-02-05] MEDS: HYDROmorphone 2 MG TABLET 0.5 MG PO (03:33)
--- NOTE | 2022-02-05 04:39 | ED.NURSE ---
cancel second BC per dr zambrano
[2022-02-05] MEDS: HYDROmorphone 2 MG TABLET 1 MG PO (08:03)
--- NOTE | 2022-02-05 08:09 | ED.NURSE ---
pt up to chair with walker, pt slow moving and c/o pain with movement. 5-11/27. breakfast ordered. pt given dilaudid po. Sindy pappas, called and said pt scheduled for 10:30 appt. she states pt needs to be DC'd to go to dialysis.
[2022-02-05] MEDS: lisinopriL 20 MG TABLET PO (08:38)
[2022-02-05] MEDS: CLOPIDOGREL 75 MG TABLET PO (08:38)
[2022-02-05] MEDS: METOPROLOL TARTRATE 50 MG TABLET PO (08:39)
[2022-02-05] MEDS: AMIODARONE 200 MG TABLET 100 MG PO (08:39)
--- NOTE | 2022-02-05 08:45 | ED_ITS ---
HPI - General Adult General Chief complaint: Hip Injury/Pain Stated complaint: Hip pain Time Seen by Provider: 02/04/22 17:24 Source: patient, RN notes reviewed and old records reviewed Mode of arrival: EMS Limitations: no limitations History of Present Illness HPI narrative: Took over the care for this patient on Tuesday morning at 8:00 a.m.. She was sitting in the chair having breakfast. I reviewed marie of her lab work, her vitals while she was in the ER for the last 16 hours, and all of her imaging. I consulted with Orthopedic surgery regarding her CT findings. I spoke to JORDAN Gonzales, who was not concerned about the trace fluid in the inguinal canal and felt that her advanced arthritis could explain her discomfort. Related Data Allergies Allergy/AdvReac Type Severity Reaction Status Date / Time amlodipine Allergy Verified 02/04/22 17:24 benzethonium chloride Allergy Verified 02/04/22 17:24 clindamycin Allergy Verified 02/04/22 17:24 iron Allergy Verified 02/04/22 17:24 latex Allergy Verified 02/04/22 17:24 Penicillins Allergy Verified 02/04/22 17:24 propylene glycol Allergy Verified 02/04/22 17:24 Sulfa (Sulfonamide Allergy Verified 02/04/22 17:24 Antibiotics) PFSH PFSH Social History Smoking Status: Never smoker Do you use any of these nicotine containing products: None Second hand tobacco smoke exposure: No How often do you have a drink containing alcohol: never How often do you have six or more drinks on one occasion: Never AUDIT-C Alcohol total score: 0 Non-prescribed substance use: denies use Exam Const: Vital Signs, click to edit/add: Vital Signs - 24 hr 02/04/22 17:24 02/04/22 17:30 02/04/22 18:30 Temperature 97 F L 97 F L Pulse Rate [Apical ] 128 H 127 H 123 H Respiratory Rate 18 16 Blood Pressure [Ri ght Upper Arm] 134/95 H 128/96 H 137/95 H Pulse Oximetry 97 94 94 Oxygen Delivery Me thod Room Air Room Air Room Air 02/04/22 19:30 02/04/22 21:30 02/04/22 22:00 Temperature 96.7 F L Pulse Rate [Apical ] 124 H 116 H 115 H Respiratory Rate 14 14 14 Blood Pressure [Ri ght Upper Arm] 116/84 103/73 125/88 Pulse Oximetry 97 93 Oxygen Delivery Me thod Room Air Room Air Room Air 02/04/22 22:30 02/04/22 23:00 02/05/22 01:00 Temperature 96.7 F L Pulse Rate [Apical ] 114 H 113 H 60 Respiratory Rate 14 14 14 Blood Pressure [Ri ght Upper Arm] 103/73 102/72 117/63 Pulse Oximetry 94 93 95 Oxygen Delivery Me thod Room Air Room Air Room Air 02/05/22 02:00 02/05/22 03:00 02/05/22 04:00 Temperature Pulse Rate [Apical ] 61 61 55 L Respiratory Rate 14 14 14 Blood Pressure [Ri ght Upper Arm] 112/61 123/63 115/61 Pulse Oximetry 97 100 95 Oxygen Delivery Me thod Room Air Room Air Room Air 02/05/22 05:00 02/05/22 06:00 02/05/22 07:00 Temperature Pulse Rate [Apical ] 56 L 55 L 55 L Respiratory Rate 14 14 14 Blood Pressure [Ri ght Upper Arm] 106/58 L 122/64 126/59 L Pulse Oximetry 93 97 94 Oxygen Delivery Me thod Room Air Room Air Room Air 02/05/22 08:38 Temperature Pulse Rate [Apical ] 62 Respiratory Rate 18 Blood Pressure [Ri ght Upper Arm] 138/75 Pulse Oximetry 96 Oxygen Delivery Me thod Room Air Course Course Hospital Course: Will have patient on cardiac monitoring and pulse oximetry. Do not have any recent records on her to establish heart rate baseline. She is seemingly asymptomatic at this time. Will do appropriate labs, obtain imaging of her hip and pelvis. While she is having this imaging done I will get a chest x-ray to ensure no significant fluid overload. Clinically her lungs sound clear. Vital Signs Vital signs: Initial Vital Signs Temperature 97 F L 02/04/22 17:24 Temperature Source Temporal Artery Scan 02/04/22 17:24 Pulse Rate 128 H 02/04/22 17:24 Pulse Rhythm 02/04/22 17:24 Respiratory Rate 18 02/04/22 17:24 Blood Pressure 134/95 H 02/04/22 17:24 Blood Pressure Mean 108 02/04/22 17:24 Blood Pressure Position Supine 02/04/22 17:24 Pulse Oximetry 97 02/04/22 17:24 Oxygen Delivery Method 02/04/22 17:24 Vital Signs Temperature 97 F L 02/04/22 17:24 Pulse Rate 128 H 02/04/22 17:24 Respiratory Rate 18 02/04/22 17:24 Blood Pressure 134/95 H 02/04/22 17:24 Pulse Oximetry 97 02/04/22 17:24 Oxygen Delivery Method 02/04/22 17:24 Temperature 96.7 F L 02/04/22 22:30 Pulse Rate 62 02/05/22 08:38 Respiratory Rate 18 02/05/22 08:38 Blood Pressure 138/75 02/05/22 08:38 Pulse Oximetry 96 02/05/22 08:38 Oxygen Delivery Method 02/05/22 08:38 Medical Decision Making MDM Narrative Medical decision making narrative: 76-year-old female with right hip pain going on for several days. We discussed her living situation. She stated that she is able to get extra help when she needs it. She states that they can help her get in out of her wheelchair and she can wheel around without difficulty. She states that she gets help with meals and with getting to the bathroom when needed. I asked her if she felt comfortable going home at this time she said that she did. She was also having tachycardia while she was here, likely paroxysmal junctional tachycardia, which has not resolved. She will be discharged from the hospital to attend dialysis. She will then go home after that. We will make an appointment for her to see orthopedic surgery as the orthopedic team recommended joint injection for possible amelioration of her symptoms. Patient already has Dilaudid scheduled and prescribed. She had no other questions or concerns. Lab Data Labs: Lab Results 02/04/22 02/04/22 02/04/22 Range/Units 17:58 18:25 18:25 WBC 5.61 (4.50-11.00) K/uL RBC 3.60 L (4.00-5.20) m/uL Hgb 12.3 (12.0-16.0) gm/dL Hct 36.3 (33.0-51.0) % MCV 101 H (80-100) fL MCH 34 (26-34) pg MCHC 34 (32-36) gm/dL RDW Coeff of Fabienne 12.7 (11.5-15.5) % Plt Count 254 (140-440) K/uL Neut % (Auto) 67.9 (42.0-72.0) % Lymph % (Auto) 13.4 L (20-44) % [place] % (Auto) 15.5 H (0.0-11.0) % Eos % (Auto) 2.3 (0.0-7.0) % Baso % (Auto) 0.7 (0.0-3.0) % Neut # (Auto) 3.81 (1.7-7.0) K/uL Lymph # (Auto) 0.80 L (0.90-2.90) K/uL [place] # (Auto) 0.90 (0.00-0.90) K/UL Eos # (Auto) 0.13 (0.00-0.50) K/uL Baso # (Auto) 0.04 (0.00-0.30) K/uL Abs Immat Gran (auto) 0.01 (0.00-0.30) K/uL Sodium 131 L (135-149) mmol/L Potassium 4.9 (3.6-5.1) mmol/L Chloride 89 L (96-114) mmol/L Carbon Dioxide 27 (20-32) mmol/L BUN 33 H (7-30) mg/dL Creatinine 6.0 H (0.5-1.5) mg/dL Estimated Creat Clear 6.41 Estimated GFR 7 ml/min Glucose 105 (60-115) mg/dL Lactate (0.5-1.9) mmol/L Calcium 10.2 (8.4-10.6) mg/dL Total Bilirubin 0.7 (0.1-1.5) mg/dL AST 25 (12-35) U/L ALT 16 (4-35) U/L Alkaline Phosphatase 123 (40-150) U/L Troponin I < 0.01 L (0.01-0.04) ng/mL NT-Pro-B Natriuret Pep 65430 H (0-450) PG/mL Total Protein 7.2 (6.0-8.3) g/dL Albumin 4.7 (3.3-5.0) g/dL Lipase (23-300) U/L TSH (0.270-4.200) uIU/mL SARS-CoV-2 (PCR) Negative SARS-CoV-2 (Negative) 02/04/22 02/04/2202/04/22 Range/Units 18:25 23:53 23:53 WBC 5.89 (4.50-11.00) K/uL RBC 3.38 L (4.00-5.20) m/uL Hgb 11.5 L (12.0-16.0) gm/dL Hct 34.5 (33.0-51.0) % MCV 102 H (80-100) fL MCH 34 (26-34) pg MCHC 33 (32-36) gm/dL RDW Coeff of Fabienne 12.7 (11.5-15.5) % Plt Count 228 (140-440) K/uL Neut % (Auto) 61.2 (42.0-72.0) % Lymph % (Auto) 17.8 L (20-44) % [place] % (Auto) 17.1 H (0.0-11.0) % Eos % (Auto) 2.7 (0.0-7.0) % Baso % (Auto) 1.0 (0.0-3.0) % Neut # (Auto) 3.60 (1.7-7.0) K/uL Lymph # (Auto) 1.00 (0.90-2.90) K/uL [place] # (Auto) 1.00 H (0.00-0.90) K/UL Eos # (Auto) 0.16 (0.00-0.50) K/uL Baso # (Auto) 0.06 (0.00-0.30) K/uL Abs Immat Gran (auto) 0.01 (0.00-0.30) K/uL Sodium (135-149) mmol/L Potassium (3.6-5.1) mmol/L Chloride (96-114) mmol/L Carbon Dioxide (20-32) mmol/L BUN (7-30) mg/dL Creatinine (0.5-1.5) mg/dL Estimated Creat Clear Estimated GFR ml/min Glucose (60-115) mg/dL Lactate 1.0 (0.5-1.9) mmol/L Calcium (8.4-10.6) mg/dL Total Bilirubin (0.1-1.5) mg/dL AST (12-35) U/L ALT (4-35) U/L Alkaline Phosphatase (40-150) U/L Troponin I (0.01-0.04) ng/mL NT-Pro-B Natriuret Pep (0-450) PG/mL Total Protein (6.0-8.3) g/dL Albumin (3.3-5.0) g/dL Lipase (23-300) U/L TSH 0.340 (0.270-4.200) uIU/mL SARS-CoV-2 (PCR) (Negative) 02/04/22 Range/Units 23:53 WBC (4.50-11.00) K/uL RBC (4.00-5.20) m/uL Hgb (12.0-16.0) gm/dL Hct (33.0-51.0) % MCV (80-100) fL MCH (26-34) pg MCHC (32-36) gm/dL RDW Coeff of Fabienne (11.5-15.5) % Plt Count (140-440) K/uL Neut % (Auto) (42.0-72.0) % Lymph % (Auto) (20-44) % [place] % (Auto) (0.0-11.0) % Eos % (Auto) (0.0-7.0) % Baso % (Auto) (0.0-3.0) % Neut # (Auto) (1.7-7.0) K/uL Lymph # (Auto) (0.90-2.90) K/uL [place] # (Auto) (0.00-0.90) K/UL Eos # (Auto) (0.00-0.50) K/uL Baso # (Auto) (0.00-0.30) K/uL Abs Immat Gran (auto) (0.00-0.30) K/uL Sodium (135-149) mmol/L Potassium (3.6-5.1) mmol/L Chloride (96-114) mmol/L Carbon Dioxide (20-32) mmol/L BUN (7-30) mg/dL Creatinine (0.5-1.5) mg/dL Estimated Creat Clear Estimated GFR ml/min Glucose (60-115) mg/dL Lactate (0.5-1.9) mmol/L Calcium (8.4-10.6) mg/dL Total Bilirubin (0.1-1.5) mg/dL AST (12-35) U/L ALT (4-35) U/L Alkaline Phosphatase (40-150) U/L Troponin I (0.01-0.04) ng/mL NT-Pro-B Natriuret Pep (0-450) PG/mL Total Protein (6.0-8.3) g/dL Albumin (3.3-5.0) g/dL Lipase 70 (23-300) U/L TSH (0.270-4.200) uIU/mL SARS-CoV-2 (PCR) (Negative) Discharge Plan Discharge Clinical Impression: End stage renal disease on dialysis, Heart murmur, Paroxysmal junctional tachycardia Acute hip pain Qualifiers: Laterality: right Qualified Code(s): M25.551 - Pain in right hip Condition: Unchanged Additional Instructions: You will be discharged home today, you should attend dialysis as scheduled. Will make an appointment for you to see the orthopedic surgeon early next week- you may benefit from a joint injection into the right hip. Your pain is likely caused by advanced arthritis and the joint injection may help relieve some of your discomfort. Return to the ER if you develop fever, weakness, or vomiting.
--- NOTE | 2022-02-05 09:32 | ED.NURSE ---
pt ate breakfast, sitting up in wheelchair. talking on phone. pt able to have her transportation service pick her up at ED at 10:30 and bring her to dialysis. pt used home eye drops.
--- NOTE | 2022-02-05 11:13 | PC.SOCIAL ---
Pt. is from the [facility] and needs to get to her dialysis at [facility] here in [place]. Spoke with pt.'s [employer] director of primary care who has to give approval to [facility] transportation to switch patient's pharmacy picking tech location to the [facility] ED. heart transportation will arrive at 10:30 to transport.
--- NOTE | 2022-02-05 11:37 | ED.NURSE ---
pt in waiting room waiting for [facility] transportation to pick her up to bring to her dialysis appointment. called [facility] and updated them. pt states [facility] will now be here at 12:05
--- NOTE | 2022-02-05 12:12 | ED.NURSE ---
assisted pt onto van, they will transport her to dialysis
== END 2022-02-05 12:14 | disposition home or self-care (01) ==
PROVIDERS: Family Medicine; Emergency Provider Family Medicine
DX: M25.551 Pain in right hip (principal); I47.1 Supraventricular tachycardia; N18.6 End stage renal disease; Z99.2 Dependence on renal dialysis
CPT/HCPCS: 36415; 71045; 71260; 72192; 73502; 74177; 80053; 83605; 83690; 83880; 84443; 84484; 85025; 87040; 87635; 93005; 96374; 96375; 99281; 99283; 99284; 99285; A9270; J1100; J2405; J7050; Q9967

== ENCOUNTER 2023-05-07 13:48 | Emergency (ER) | payer MEDICARE, OTHER, SELFPAY ==
[2023-05-07 14:04] VITALS: PULSE 60
--- NOTE | 2023-05-07 14:14 | ED_ITS ---
HPI - General Adult General Date Seen: 05/07/23 Chief complaint: Extremity Pain/Injury, Upper Stated complaint: Arm bleeding post dialysis Time Seen by Provider: 05/07/23 13:58 Source: patient Mode of arrival: ambulatory Limitations: no limitations History of Present Illness HPI narrative: Patient is a 78-year-old dialysis patient who presents with bleeding from her shunt after dialysis today. She says that they had problems last week as well but they were able to get it to stop with pressure. Today they had pressure on it for an hour and half and it did not stop. She takes Plavix in review of her medications, I do not see any other anticoagulation. She has not otherwise had problems with the shunt. No other complaints. Related Data Allergies Allergy/AdvReac Type Severity Reaction Status Date / Time acetic acid Allergy Severe Hives Verified 02/09/22 11:32 benzalkonium chloride Allergy Severe Hives Verified 02/09/22 11:32 hydrocortisone Allergy Severe Hives Verified 02/09/22 11:32 amlodipine Allergy Verified 02/04/22 17:24 benzethonium chloride Allergy Verified 02/04/22 17:24 clindamycin Allergy Verified 02/04/22 17:24 iron Allergy Verified 02/04/22 17:24 latex Allergy Verified 02/04/22 17:24 Penicillins Allergy Verified 02/04/22 17:24 propylene glycol Allergy Verified 02/04/22 17:24 Sulfa (Sulfonamide Allergy Verified 02/04/22 17:24 Antibiotics) Penicillin Allergy Severe Throat Uncoded 02/09/22 11:32 closure, hives Sulfa Antibiotics Allergy Unknown Throat Uncoded 02/09/22 11:32 closure, hives IV iron AdvReac Severe Hospital Uncoded 02/09/22 11:32 admission due to trouble breathing [facility] Medical History Mumps ?B26.9 - Mumps without complication (ICD-10) History of fracture of pelvis ?Z87.81 - Personal history of (healed) traumatic fracture (ICD-10) Surgical History Status post total abdominal hysterectomy and bilateral salpingo-oophorectomy ?Z90.710 - Acquired absence of both cervix and uterus (ICD-10) ?Z90.722 - Acquired absence of ovaries, bilateral (ICD-10) ?Z90.79 - Acquired absence of other genital organ(s) (ICD-10) Social History Smoking Status: Never smoker Do you use any of these nicotine containing products: None Second hand tobacco smoke exposure: No How often do you have a drink containing alcohol: never How often do you have six or more drinks on one occasion: Never AUDIT-C Alcohol total score: 0 Non-prescribed substance use: denies use Exam Narrative: Exam Narrative: Vital signs reviewed, she is hypertensive here which she says is a chronic problem for her. In general, alert, well-appearing woman. She is hard of hearing. Extremities: Examination of the left arm shows a palpable shunt, there is punctate bleeding noted when the pressure gauze was removed. There is no overlying erythema or warmth. Skin: Warm dry well perfused. Const: Vital Signs, click to edit/add: Vital Signs - 24 hr 05/07/23 14:17 Temperature 96.8 F L Pulse Rate [Pulse Oximeter] 60 Respiratory Rate 18 Blood Pressure [Ri ght Upper Arm] 203/91 H Pulse Oximetry 97 Oxygen Delivery Me thod Room Air Course Course ED Course: Will try Gelfoam and give that 1/2 hour to an hour to see if we achieve hemostasis. If not, will discuss with General surgery. With a Gelfoam dressing on, she has not had any bleeding. I have recommended that she leave this dressing on until she dialyzes on Tuesday. She says that they were planning to make an appointment for her with a vascular surgeon which I think is appropriate given that she has been having problems the past couple runs. If she develops recurrent bleeding return to the emergency department at any time. Vital Signs Vital signs: Initial Vital Signs Temperature 96.8 F L 05/07/23 14:17 Temperature Source Temporal Artery Scan 05/07/23 14:17 Pulse Rate 60 05/07/23 14:17 Respiratory Rate 18 05/07/23 14:17 Blood Pressure 203/91 H 05/07/23 14:17 Blood Pressure Mean 128 H 05/07/23 14:17 Pulse Oximetry 97 05/07/23 14:17 Oxygen Delivery Method Room Air 05/07/23 14:17 Vital Signs Temperature 96.8 F L 11/18/23 14:17 Pulse Rate 60 05/07/23 14:17 Respiratory Rate 18 05/07/23 14:17 Blood Pressure 203/91 H 05/07/23 14:17 Pulse Oximetry 97 05/07/23 14:17 Oxygen Delivery Method Room Air 05/07/23 14:17 Temperature 96.8 F L 05/07/23 14:17 Pulse Rate 60 05/07/23 14:17 Respiratory Rate 18 05/07/23 14:17 Blood Pressure 203/91 H 05/07/23 14:17 Pulse Oximetry 97 05/07/23 14:17 Oxygen Delivery Method Room Air 05/07/23 14:17 Discharge Plan Discharge Clinical Impression: Bleeding from dialysis shunt Patient Disposition: Home, Self-Care Condition: Improved Additional Instructions: Leave current dressing on until you go to dialysis on Tuesday. Follow up with vascular surgery as planned. If you have recurrent bleeding through this dressing, return to the emergency department. Follow Up/Referrals: Provider,Not a Local [Primary Care Provider] - Stand Alone [facility]: [facility] Instructions
[2023-05-07 14:17] VITALS: BP 203/91; PULSE 60; RESP 18; TEMP 36; O2SAT 97; BMI 25.8
--- OUTSIDE RECORDS SUMMARY | 2023-05-07 14:48 | XMS_ITS | Continuity of Care Document ---
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) - 01/11/23 Glaucoma(Discharge Diagnosis) - 01/11/23 Seizure(Discharge Diagnosis) - 01/11/23 Hypertensive heart disease(Discharge Diagnosis) - 01/11/23 HLD - Hyperlipidemia(Discharge Diagnosis) - 01/11/23 Coronary arteriosclerosis(Discharge Diagnosis) - 01/11/23 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 (Discharge Diagnosis) - 01/11/23 At risk of falls(Discharge Diagnosis) - 01/11/23 Discharge Disposition: Home or Self Care Attending Physician: GURMEET Dunn APRN, Elyse THOMPSON Allergies, Adverse Reactions, Alerts Substance Reaction Severity Status Latex Hives Severe Active Propylene Glycol Hives Severe Active clindamycin throat swelling hives Active hydrocortisone Hives Active iron dextran 1 Dyspnea Urticaria Anaphylaxis Severe Active ferrous sulfate 2 hives anaphylaxis Severe Active acetic acid otic Hives Unknown Active carbonyl iron Urticaria Anaphylaxis Unknown Active penicillins throat selling/closi ng Hives Severe Active sulfonamides throat swelling/clos ing Hives Severe Active amLODIPine Cramps Severe Active benzethonium chloride topical Severe Active 1Outside Source Comment: IV iron - hospital admission due to trouble breathing 2allergic to IV iron only. Has taken oral iron with no side effects Immunizations Given and Recorded Vaccine Date Status Refusal Reason SARS-CoV-2 (COVID-19) vax, unspecified 05/19/21 Re corded SARS-CoV-2 (COVID-19) vax, unspecified 08/04/20 Re corded SARS-CoV-2 (COVID-19) vax, unspecified 07/07/20 Re corded influenza virus vaccine, inactivated 01/06/21 Juanjo rded influenza virus vaccine, inactivated 04/08/17 Juanjo rded influenza virus vaccine, inactivated 04/03/16 Juanjo rded influenza virus vaccine, inactivated 04/20/15 Juanjo rded tetanus 1 02/04/17 Recorded pneumococcal (PPS23) 2 02/04/17 Recorded pneumococcal (PPS23) 3 05/05/09 Recorded pneumococcal (PCV13) 4 06/16/15 Recorded influenza 03/09/12 Recorded influenza 5 06/07/11 Recorded influenza 6 06/15/04 Recorded influenza, H1N1, inactivated 7 05/05/09 Recorded Tdap 8 11/21/06 Recorded Hep B 08/03/94 Recorded Hep B 03/03/94 Recorded Hep B 02/03/94 Recorded 1Result Comment: Route: Intramuscular Motor Vehicle License Clerk: Setup 2Result Comment: Route: Intramuscular Motor Vehicle License Clerk: [employer] 3Result Comment: Route: Intramuscular Motor Vehicle License Clerk: [employer] 4Result Comment: Route: Intramuscular Motor Vehicle License Clerk: Wyeth 5Result Comment: Route: Intramuscular Motor Vehicle License Clerk: [employer] 6Result Comment: Route: Intramuscular Motor Vehicle License Clerk: [employer] 7Result Comment: Route: Intramuscular Motor Vehicle License Clerk: [employer] 8Result Comment: Route: Intramuscular Motor Vehicle License Clerk: [employer] Medications albuterol 1-2 puffs, Inhale, every 6 hr, PRN, 0 Refill(s) Start Date: 03/26/22 Status: Ordered amiodarone 100 mg oral tablet 100 mg, 0 Refill(s) Start Date: 03/26/22 Status: Ordered atorvastatin 10 mg oral tablet 0 Refill(s) Start Date: 03/26/22 Status: Ordered clopidogrel 75 mg oral tablet 0 Refill(s) Start Date: 03/26/22 Status: Ordered ferrous gluconate 324 mg (38 mg elemental iron) oral tablet 324 mg, 0 Refill(s) Start Date: 03/26/22 Status: Ordered lanthanum 500 mg oral tablet, chewable See Instructions, 3 tabs (1500mg) TID with meals dosing per lab results per Nephrology, 0 Refill(s) Start Date: 01/12/23 Status: Ordered levETIRAcetam 500 mg oral tablet 500 mg, 0 Refill(s) Start Date: 03/26/22 Status: Ordered lisinopril 40 mg oral tablet 40 mg, 0 Refill(s) Start Date: 03/26/22 Status: Ordered loperamide 2 mg oral capsule 2 mg, 0 Refill(s) Start Date: 03/26/22 Status: Ordered metoprolol tartrate 100 mg oral tablet 100 mg, 0 Refill(s) Start Date: 03/26/22 Status: Ordered Nephrocaps oral capsule 0 Refill(s) Start Date: 03/26/22 Status: Ordered pilocarpine 1% ophthalmic solution BID, 0 Refill(s) Start Date: 03/26/22 Status: Ordered pilocarpine 1% ophthalmic solution See Instructions, 1 drop to each eye before dialysis on Tue-Tue-Tue as needed, 0 Refill(s) Start Date: 01/12/23 Status: Ordered Synthroid 100 mcg (0.1 mg) oral tablet 0 Refill(s) Start Date: 03/26/22 Status: Ordered Problem List Condition Confirmation Course Effective Dates Status Health Status Informant Anemia secondary to renal failure Confirmed Active At risk of falls Confirmed Active AV - Acquired renal arteriovenous fistula Confirmed Active Cataract Confirmed Active 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 Confirmed 09/22/15 Active Congenital anomaly of cerebrovascular system Confirmed Active Coronary arteriosclerosis Confirmed Active Dependence on renal dialysis Confirmed 06/19/15 Active End stage renal failure on dialysis Confirmed 01/30/14 Active Glaucoma Confirmed Active HLD - Hyperlipidemia Confirmed Active Hyperparathyroidism due to renal insufficiency (disorder) Confirmed Active Hypertensive heart disease Confirmed Active Hypothyroidism Confirmed Active Moderate mitral valve regurgitation Confirmed Active Osteoporosis Confirmed Active PCK - Polycystic kidney disease Confirmed Active Pulmonary hypertension Confirmed Active Seizure Confirmed Active Supraventricular tachycardia Confirmed 08/13/19 Active Transient cerebral ischemia Confirmed 01/28/16 Active Tricuspid regurgitation Confirmed Active Diagnosis Diagnosis Type Effective Dates Health Status Clinical Service Informant PCK - Polycystic kidney disease Discharge Diagnosis 01/11/23 End stage renal failure on dialysis Discharge Diagnosis 01/11/23 Anemia secondary to renal failure Discharge Diagnosis 01/11/23 Congenital anomaly of cerebrovascular system Discharge Diagnosis 01/11/23 Coronary arteriosclerosis Discharge Diagnosis 01/11/23 Glaucoma Discharge Diagnosis 01/11/23 Dependence on renal dialysis Discharge Diagnosis 01/11/23 Hypertensive heart disease Discharge Diagnosis 01/11/23 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 Discharge Diagnosis 01/11/23 Seizure Discharge Diagnosis 01/11/23 At risk of falls Discharge Diagnosis 01/11/23 HLD - Hyperlipidemia Discharge Diagnosis 01/11/23 Procedures Procedure Date Related Diagnosis Body Site Status Fistulography with contrast 1 03/25/21 Completed Fistulography with contrast 2 02/28/20 Completed Fistulography with contrast 3 07/12/19 Completed Fistulography with contrast 08/17/18 Completed AV fistula recirculation (ob servable entity) 4 10/07/17 Completed Colonoscopy (procedure) 5 2006 Completed Hysterectomy (procedure) 6 02/17/99 Completed Ophthalmic surgery (qualifier value) 1950 Completed Tonsillectomy (procedure) Completed 1Outside Source Comment: Left 2Outside Source Comment: Left 3Outside Source Comment: Left 4Outside Source Comment: Left upper extremity brachial to basilic fistula. Dr. Busby 5Outside Source Comment: 1998 and 2006 6Outside Source Comment: BYRON and BSO endometrial cancer. Vital Signs Most recent to oldest [Reference Range]: 1 Apical Heart Rate [60-100 bpm] 61 bpm (01/10/23 12:30 PM) Peripheral Pulse Rate [60-100 bpm] 53 bp m *LOW* (01/10/23 12:30 PM) Respiratory Rate [14-20 br/min] 17 br/mi n (01/10/23 12:30 PM) Blood Pressure [90-120/60-80 mmHg] 110/5 6mmHg (01/10/23 12:30 PM) Mean Arterial Pressure, Cuff [70-110 mmH g] 74 mmHg (01/10/23 12:30 PM) Social History Social History Type Response Smoking Status Never (less than 100 in lifetime);Never entered on: 06/17/22 Sex Note * GURMEET Dunn, RECREATION DIRECTOR, ANP-BC, Elyse: PERFORM Event Display: General Clinic Note (Physician) Authored Date: [id number] Comprehensive Health Evaluation for the re-evaluation of chronic conditions. History of Present Illness SHASTA LARA??is a??White female 77 Years??old with a history of??ESRD??for??11??years due to??Polycystic Kidney Disease.??Established??patient seen for a??Comprehensive Health Evaluationtoday??at[facility]?? Patient is receiving dialysis during our visit and does not appear in distress. ?? Patient identity was verbally verified using full name and date of for this encounter. ?? Transplant Status: Per Nephrology no previous transplant and reported patient is not interested or ready for a referral for transplant due to her age and comorbidities. ?? No known recent hospitalizations in the past 90 days. She resides at [facility] with reported nursing service, assistance with medication administration and meal service. Review of Systems Review of Systems?? Constitutional:??Yes??Weight Change target weight recently increased by 0.5kg, No Appetite changes reports it's good,??No Fever, No chills, No Fatigue ENT/Mouth: No Hearing Changes, No Nasal Congestion, No Sinus Congestion, No Sore Throat, No Swallowing Difficulty, No Teeth Pain, No Mouth Pain EYES: No Eye Pain, No Redness, No Drainage, No floaters, No acute Vision Changes reports she has cataracts with slowly increased blurry vision of the right eye and pending ophthalmology consult Cardiovascular: No Chest Pain, No Chest Tightness,?Yes Edema occasional notes end of weekend bilateral Bilateral lower extremities ankles, feet,??Yes Palpitations once in awhile self limiting, Vascular Access: Left upper extremity AVF in use, No reported difficulties per clinical staff/RN orpatient, No signs/symptoms of infection, Functional, denies bleeding of access at home Respiratory: No Cough, No wheezing, No SOB,yes Dyspnea on Exertion I might if I am really??tired,No Orthopnea, No PND Gastrointestinal: No Nausea, No Vomiting,??No Diarrhea, No Constipation, No Pain, No Heartburn, No Anorexia, No Dysphagia, No Melena, No Hematochezia Genitourinary: Reports minimal??will increase if too much fluid,??No Dysuria, No Urinary Frequency, No Hematuria, No Urinary Incontinence, No Urgency. No Vaginal Bleeding- hysterectomy, Musculoskeletal:??Chronic left side weakness, denies falls in past 3 months ambulation with walker at all times??s/p CVA, Yes Arthralgias I ache all of the time Yes??Myalgias at times at HD lowering UFR goal reported by RN/patient as effective, No Joint Swelling, No Back Pain, No neck pain Skin: No Skin Lesions/Rash, No Pruritus, No Wounds Neuro: No Weakness,??Yes Numbness and??Yes??Paresthesias of bilateral feet, No Syncope, No Dizziness, No Headache, Yes subjective report of chronic weakness of left side after CVA Psych: No Anxiety/Panic, No Depression diagnosed and patient denies presently, No suicidal ideation,plan or action or history/thoughts of self harm I do everything I can to stay alive, No Insomnia most of the time I sleep well, No??acute Memory Changes reports overall her memory is not as goodas it used to be and that is why she is residing at [facility] i am very happy there. Heme/Lymph: No Bruising, No Bleeding Endocrine: No Polyuria, No Polydipsia, No Temperature Intolerance ? Physical Exam Vitals & Measurements HR:??53(Peripheral)?? HR:??61(Apical)?? RR:??17?? BP:??110/56?? HT:??64??in?? WT:??142.56??lb?? BMI:??24.47?? GENERAL APPEARANCE: The patient is a well-developed, well-nourished??female, appears comfortable??in no acute distress.?? HEENT:?? Head: Normocephalic and atraumatic Ears: There is no evidence of any external masses or lesions noted.?? Eyes: Extraocular muscles are intact. Pupils are round and reactive to light. Conjunctivas are pinkand moist. Scleras are white and nonicteric..?? Nose: Nasal mucosa is pink and moist. Septum is midline.?? Mouth: Oral mucosa is pink and moist. Dentition is good, tongue midline, no swelling, no facial drooping NECK: Supple. Trachea is midline. There is no jugular venous distention noted. There are no palpable masses.?? LUNGS: Faint crackle noted in left lower lobe other lobes are clear to auscultation has 2 hours left of HD session. There are no wheezes or rhonchi noted. HEART: Regular rate and rhythm, S1/S2. No murmurs are noted. Left AVF +++bruit/thrill/CMS no edema,no erythema, no bleeding ABDOMEN: Soft and nontender. Bowel sounds normal. There is no rebound or guarding. There is no evidence of hernia.? SKIN: There are no rashes, lesions or ulcers noted on limited exam. Warm and dry with good turgor.?? MUSCULOSKELETAL: Gait is not observed as sitting in dialysis chair during session,There is no clubbing, cyanosis , with??trace bilateral lower extremity??edema.?? FEET: Skin intact. DP and PT pulses are 3+ bilaterally. No evidence of onychomycosis.?? NEUROLOGIC: Cranial nerves II through XII are grossly intact. Sensation to light touch and pain is intact bilaterally.??grasp strength equal PSYCHIATRIC: The patient is alert and oriented to person, place and time. Appropriate affect. Thereis no apparent mood disorder. Pleasant and engaged in conversation. ?? Depression Screening No qualifying data available. PHQ-9 completed today with Total Score of zero with suicidal ideation question 9 score of zero. I do everything I can to stay alive ?? Falls Risk Assessment No qualifying data available. Brar Fall Scale completed today score of 40 see assessment/plan Assessment/Plan 1.??PCK - Polycystic kidney disease A: Stable. History of polycystic kidney disease autosomal dominant, as well as her mother.?? Initiated dialysis therapy on 10/26/2011 with home CCPD training. later she did transfer to Hemodialysis. She reports minimal urine output but does note increase if has too much fluid PO intake. Condition found in 2727 as cause of ESRD. ?? P: Continue??follow-up per nephrology Dr. Gabriel Alan MD. Attend all dialysis sessions and obtain target weight as prescribed. 2.??End stage renal failure on dialysis A: ESKD??stable on hemodialysis 3x/week and oral therapies. Tolerating dialysis treatment without any complaints or concerns I have felt so good lately. Adequate sp Kt/V of??1.97??and URR of??80.?? Patient meets close to or at TW of??64.8kg which was raised by Nephrology last week. Fistula??to??left upper arm??is functioning well per clinical dialysis team/RN report.? P: Managed by Nephrology. Dr. Gabriel Alan MD.?? 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 Patient to follow renal diet and fluid restrictions per clinic offset platemaker.?? Continue current dialysis treatment, monitor renal labs and vascular access.?? 3.??Dependence on renal dialysis 4.??Immunodeficiency disorder (disorder) A: Condition is stable at this time with no signs/symptoms of infection. Immunocompromised due to ESRD, HF. ??Received COVID-19 vaccination x2 and last seasonal Influenza vaccine in 2020. ?? P: Educate on proper handwashing, mask per medical clinic protocol, avoid ill contacts as able. Continue to monitor.?? 5.??Hyperparathyroidism due to renal insufficiency (disorder) A: Condition is stable on daily Lanthanum Carbonate and in-center calcitriol and cincalcet Corrected calcium is 9.2 Phosphorus is 3.5 PTH is 477 ?? P:Patient grief counselor to continue low phosphorus diet??and maintain binder compliance. Managed by nephrology. Will continue to follow. 6.??Anemia secondary to renal failure A: Stable on in-center dialysis anemia protocol. Denies active bleeding or melena, hematochezia. Hgb??10.6??at goal. Ferritin 51??at goal. TSat??30??at goal. ?? P: Currently on??Mircera and Venofer on hold??per anemia protocol.?? Managed by nephrology. Continue to monitor Hgb and follow anemia protocols.?? 7.??Congenital anomaly of cerebrovascular system A: Stable. History of??congenital anomaly of the cerebrovascular system with reported onset of seizures??starting at the age of 18. ??The Seizures??have been controlled with Levetiracetam and per patient and medical record review has not had a reported seizure for years. condition also??found in claims data. ?? P: continue current medical therapy and follow-up with??her neurologist/PCP as per plan of care. 8.??Seizure A: Stable.??History of??congenital anomaly of the cerebrovascular system with reported onset of seizures??starting at the age of 18. ??The Seizures??have been controlled with Levetiracetam and per patient and medical record review has not had a reported seizure for years. Condition also??found in claims data. ?? P: Continue current medical therapy and follow-up with??her neurologist/PCP as per plan of care. 9.??Hypertensive heart disease A: Hypertension is stable on dialysis treatment and oral therapies.?? Blood pressure during visit today was??110/56.? Pre-treatment SBP the past four dialysis treatments range from 110-160 Post-treatment SBP the past four dialysis treatments range from??120-150?? HTN found on 2728 long standing history prior to initiation of dialysis with contributing factors of??progression to heart disease and CKD. ?? P: Managed by nephrology.?? Currently taking??Metoprolol Tartrate??with recent??dose reduction??on dialysis??days AM??dose, Lisinopril Flanging Machine Operator to follow low sodium diet and fluid restriction per clinic dietitian.?? Continue to take medications as prescribed and adhere to all prescribed dialysis treatments.?? 10.??HLD - Hyperlipidemia A: Condition is??poorly defined.?? No lipid panel available in EMR for review. Condition found in claims data. ?? P: Managed by PCP. 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 Reviewed low fat diet and medication adherence.?? Advised to follow up with managing provider to obtain lipid panel.?? Continue to take medication Atorvastatin??as prescribed and noted by her pharmacy. She reports PCP visits occur at her residence. 11.??Coronary arteriosclerosis A: Stable. Denies chest pain, shortness of breath, increase in HEREDIA presentation. Per medical records has history of myocardial infarction in 02/2015 and chronic ischemic heart disease. Echocardiogram in 04/2021 reported with eLVEF of 60 t0 65% with moderate mitral regurgitation, trace aortic regurgitation and ascending aorta mildly dilated. At time of visit??no available records of a coronary angiogram or PCI. ?? P: Managed by cardiology.?? Continue current medications of??Atorvastatin, Plavix, Metoprolol Tartrate, Lisinopril as prescribed and attend all managing provider appointments. ??Follow-up with cardiology on??an annual basis.??Low fat diet and activity as tolerated. Will monitor 12.??Dilatation of aorta (disorder) A: Stable. Denies chest pain, shortness of breath, acute back or neck pain, new onset shoulder painor groin pain. Echocardiogram in 04/2021 reported with eLVEF of 60 t0 65% with moderate mitral regurgitation, trace aortic regurgitation and ascending aorta mildly dilated. Condition found in claims data. ?? P: Managed by cardiology.?? Continue current medications of Atorvastatin, Plavix, Metoprolol Tartrate, Lisinopril as prescribed??and attend all managing provider appointments. Continue management of HTN (Nephrology) and Hyperlipidemia followed also by PCP. ??Follow-up with cardiology on??an annual basis.??Low fat diet and activity as tolerated. 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 Ambulation with assistive device of a wheeled walker at all times. HTN is managed with metoprolol tartrate and Lisinopril, Atorvastatin and Plavix anti-platelet therapy. Condition found in claims data and medical records. ?? P:??Followed by Neurology/PCP. Continue medications as prescribed. Monitor for and report recurrent s/s of CVA/TIA. Reviewed s/s of CVA/TIA with patient and when to seek immediate medical attention.?? Continue to follow along. 14.??Pulmonary hypertension (disorder) A: Condition is stable with fluid management and BP control. Echo from??04/2021??showed:??eLVEF of 60 t0 65% with moderate mitral regurgitation, trace aortic regurgitation and ascending aorta mildly dilated. ?? P: Managed by PCP and cardiology Continued current therapy and monitor. 15.??Supraventricular tachycardia (disorder) A Stable.??Patent with history of supraventricular tachycardia.??Presented with an??episode of??palpitations??and shortness of breath due to tachycardia??she was seen in the??hospital??in 2021??and given adenosine??which was not effective.? Received further intervention with??IV??amiodarone and converted to oral??amiodarone.??There is no further reported recurrence of her SVT. 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 ?? P:??Managed by Cardiology. Attend all follow up visits as per plan of care. Offered [facility] to assist with scheduling reports her son Tayo usually attends visits with her. Continue current medical therapy of Metoprolol Tartrate 16.??At risk of falls Stable??secondary to chronic illness and??limited ambulation Brar Fall Risk Scale completed today with score of 40 Low Risk ?? P: Flanging Machine Operator on fall risk prevention; use of assistive device walker and a wheelchair if out of the home for full day of activity, keep walkways clear, non-skid shoes standard fall prevention interventions. Encourage exercises that increase balance and resistance training. Followed by??PCP_. Continue education and monitor.?? 17.??Glaucoma A:??Stable. Denies eye pain, drainage, redness, or acute vision changes. Last ophthalmology exam in 2021. Also has history of cataract conditions found in claims data and medical records. She reports the right eye slowly over time is becoming more cloudy and states that she is ready to follow up with ophthalmology for further intervention. ?? P: Manged by Ophthalmology. Attends annual dilated eye exams pending for 2022. [facility] will assist withscheduling and review with [facility] for update as well. Medication management of pilocarpine eye drops as prescribed. Review s/s of increased intraocular pressure and to notify provider Will follow along. ? 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 Coronary arteriosclerosis Dependence on renal dialysis End stage renal failure on dialysis Glaucoma HLD - Hyperlipidemia Hyperparathyroidism due to renal insufficiency (disorder) Hypertensive heart disease Hypothyroidism Moderate mitral valve regurgitation Osteoporosis PCK - Polycystic kidney disease Pulmonary hypertension Seizure Supraventricular tachycardia Transient cerebral ischemia Tricuspid regurgitation Historical No qualifying data Procedure/Surgical History ???Fistulography with contrast (03/25/2021)???Fistulography with contrast (02/28/2020)???Fistulography with contrast (07/12/2019)???Fistulography with contrast (08/17/2018)???AV fistula recirculation(observable entity) (10/07/2017)???Colonoscopy (procedure) (2006)???Hysterectomy (procedure) (1998)???Ophthalmic surgery (qualifier value) (1950)???Tonsillectomy (procedure) Medications albuterol, 1-2 puffs, Inhale, every 6 hr, PRN amiodarone 100 mg oral tablet, 100 mg atorvastatin 10 mg oral tablet clopidogrel 75 mg oral tablet ferrous gluconate 324 mg (38 mg elemental iron) oral tablet, 324 mg lanthanum carbonate 750 mg oral tablet, chewable, 750 mg, Oral, TID levETIRAcetam 500 mg oral tablet, 500 mg lisinopril 40 mg oral tablet, 40 mg loperamide 2 mg oral capsule, 2 mg metoprolol tartrate 100 mg oral tablet, 100 mg Nephrocaps oral capsule pilocarpine 1% ophthalmic solution, BID Synthroid 100 mcg (0.1 mg) oral tablet metoprolol tartrate 100mg oral tablet BID -on dialysis days take 1/2 tab (50mg) in AM post dialysisand 1 tab 100mg in PM Hydromorphone HCL oral tablet 2mg-take 0.5 tab (1mg) every 12 hours as needed for pain Miralax oral 17 grams powder mixed x1 daily as needed Allergies Latex??(Hives) Propylene Glycol??(Hives) amLODIPine??(Cramps) benzethonium chloride topical ferrous sulfate??(hives, anaphylaxis) iron dextran??(Dyspnea, Urticaria, Anaphylaxis) penicillins??(throat selling/closing, Hives) sulfonamides??(throat swelling/closing, Hives) acetic acid otic??(Hives) carbonyl iron??(Urticaria, Anaphylaxis) clindamycin??(throat swelling, hives) hydrocortisone??(Hives) Social History Electronic Cigarette/Vaping Electronic Cigarette Use: Never., 06/17/2022 Tobacco Smoking tobacco use: Never (less than 100 in lifetime). Smokeless tobacco use: Never., 06/17/2022 Family History Diabetes mellitus type II: Mother. Emphysema: Mother and Father. Emphysema of lung: Father. Polycystic kidney disease: Mother. 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 Hep B 08/03/1994 Recorded Hep B 03/03/1994 Recorded Hep B 02/03/1994 Recorded Labs Last 12 Months Albumin Level: 4.2 g/dL (01/10/23 15:37:09) Calcium: 9.2 mg/dL (12/27/22 15:33:16) CO2: 22 mEq/L (01/10/23 15:37:09) Creatinine: 7.81 mg/dL (01/10/23 15:37:09) Ferritin: 51 ng/mL (10/11/22 00:00:00) Hep B Surface Ab: 69 (03/15/22 01:00:00) Hep Bs Ab: 69 (03/15/22 00:00:00) Hgb: 11.2 g/dL (01/10/23 15:37:09) Kt/V: 1.84 (06/28/22 01:00:00) Kt/V: N/A (06/28/22 01:00:00) LDL: 57 mg/dL (03/15/22 01:00:00) Parathyroid Hormone (PTH): 477 pg/mL (12/27/22 15:33:16) Phosphorus Level: 3.5 mg/dL (12/27/22 15:33:16) Potassium Level: 5.8 mEq/L (01/10/23 15:37:09) Urea Reduction Ratio: 80 % (12/27/22 15:33:16) Patient Care team information Care Team Personnel Name: Abhay Shen Position: External Provider Member Role: Family Medicine Name: VALENTIN Salguero, ARABELLA, Zoila CHEATHAM Position: Nurse Practitioner Member Role: Mold Laminator Address: Address: [address] [place] [address]- Name: JOAQUIN Pacheco Tammy Position: Nurse - [facility] Member Role: Mold Laminator Name: [facility] Geneita Toyin Position: External Provider - Clinic Member Role: D[facility] Center Address: Address: [address] [place] [address]- Name: Gabriel Marinelli Position: External Provider - Steep Tender Member Role: Steep Tender Address: Address: [address] [place] [id number]- Name: Duane Sharma Position: External Provider Member Role: Sales Operations Coordinator
[2023-05-07 15:10] VITALS: BP 195/92; PULSE 56; RESP 16; O2SAT 96
== END 2023-05-07 15:38 | disposition home or self-care (01) ==
PROVIDERS: Emergency Provider Emergency Medicine
DX: T82.838A Hemorrhage due to vascular prosthetic devices, implants and grafts, initial encounter (principal)
CPT/HCPCS: 99282; 99283